=== PATIENT | female | born 1965 | race Caucasian/White ===

== ENCOUNTER 2020-08-15 14:04 | Observation (INO) | payer MEDICAID, SELFPAY ==
[2020-08-15] VITALS (10 sets, daily range): BP systolic 102–140; BP diastolic 59–91; PULSE 80–105; RESP 16–20; TEMP 36.4–36.6; O2SAT 97–100; BMI 40.0
--- NOTE | ~2020-08-15 | MR_ITS ---
EXAMINATION: MR brain/brain stem wo con EXAM DATE: 08/16/2020 11:09 INDICATION: right lower extremity weakness . TECHNIQUE: Magnetic resonance imaging (MRI) of the brain/brain stem obtained without contrast. Sagitt al T1, axial diffusion, gradient echo (T2*), T1, T2, FLAIR sequences obtained. Correlation is made t o head CT from 08/15/2020. FINDINGS: There are no areas of restricted diffusion to suggest acute infarction. There are 2 punctat e old left cerebellar infarctions and one punctate old right cerebellar infarction. Old bilateral bas al ganglia lacunar infarctions. There is no acute hemorrhage seen on the T2*, a hemosiderin sensitive sequence. No intraparenchymal brain mass lesion. There is mild periventricular and subcortical T2/ FLAIR signal hyperintensity, nonspecific but probably related to small vessel ischemic disease (micro angiopathy). There is mild prominence of the sulci and ventricles related to cerebral atrophy. Th ere are no extra-axial collections. Flow voids are seen in the cerebral arteries on the T2-weighted sequences consistent with their expected patency. The orbits are unremarkable. Soft tissue is unrem arkable. IMPRESSION: 1. Punctate old cerebellar and basal ganglia lacunar infarctions. 2. Chronic age related findings. Reviewed, dictated and finalized at location A. M REP
--- NOTE | ~2020-08-15 | CT_ITS ---
EXAMINATION: CT brain wo con DATE: 08/15/2020 15:23 INDICATION: Seizure. TECHNIQUE: Computed tomography (CT) of the head was performed without intravenous contrast. The mA wa s adjusted according to patient size. Iterative reconstruction technique was employed. The dose-lengt h product was 605.33 mGy-cm. COMPARISON: None FINDINGS: There are old lacunar infarcts in the bilateral basal ganglia. There is a small infarct in left frontoparietal region. There is a small infarct in right occipital lobe. There is no intracrania l hemorrhage or abnormal mass lesion. The ventricles are normal in size. The orbits are normal. The p aranasal sinuses are clear. The mastoid air cells are normal. IMPRESSION: 1. Age-indeterminate small infarcts in left frontoparietal region and right occipital lobe. 2. Old lacunar infarcts in the bilateral basal ganglia. Reviewed, dictated and finalized at location A. IGURATION MANAGEMENT SPECIALIST IMPRESSION: 1. Age-indeterminate small infarcts in left frontoparietal region and right occ ipital lobe. 2. Old lacunar infarcts in the bilateral basal ganglia.
--- NOTE | ~2020-08-15 | US_ITS ---
EXAMINATION: US carotid duplex BI DATE: 08/16/2020 11:48 INDICATION: Stroke TECHNIQUE: Grayscale, color Doppler, and pulsed Doppler images of the cervical carotid arteries were obtained. The degree of vessel stenosis is placed in one of the following categories: normal, <50%, 5 0-69%, >=70% but less than near-occlusion, near-occlusion, or total occlusion. Note that percent sten osis relative to normal distal artery lumen diameter is indirectly measured from velocity measurement s as described by Alfredo, et al. Radiology 2003; 229:340-346. Notes: Normal: Peak systolic velocity <125 centimeters/sec and no plaque <50%. Peak systolic velocity <125 ( EDV <40; ICA/CCA PSV ratio <2.0; used these factors only a tandem lesions or low cardiac output or co ntralateral disease) 50-69 %: PSV 125-230 (EDV 40-100; ratio 2-4) >= 70% but less than near occlusion: PSV greater than 230 (EDV > 100; ratio> 4.0) Near Occlusion: PSV that is variable; markedly narrowed lumen Occlusion: Absent flow on color/spectral Doppler and no lumen on meade scale. COMPARISON: None. FINDINGS: RIGHT: The right common carotid artery (CCA) peak systolic velocity (PSV) is 77 cm/s. The right internal car otid artery (ICA) PSV is 72 cm/s. The right ICA end-diastolic velocity (EDV) is 26 cm/s. The right IC A/CCA PSV ratio is 0.94. The external carotid artery (ECA) PSV is 77 cm/s. There is antegrade flow in the right vertebral artery. LEFT: The left CCA PSV is 110 cm/s. The left ICA PSV is 73 cm/s. The left ICA EDV is 18 cm/s. The left ICA/ CCA PSV ratio is 0.7. The ECA PSV is 50 cm/s. There is antegrade flow in the left vertebral artery. IMPRESSION: 1. Less than 50% stenosis in the right internal carotid artery by sonographic criteria. 2. Less than 50% stenosis in the left internal carotid artery by sonographic criteria. Reviewed, dictated and finalized at location B. ICATIONS COORDINATOR IMPRESSION: 1. Less than 50% stenosis in the right internal carotid artery by sonographic yael hernandez. 2. Less than 50% stenosis in the left internal carotid artery by sonographic radha hayward.
--- NOTE | ~2020-08-15 | MR_ITS ---
EXAMINATION: MR lumbar spine wo con DATE: 08/18/2020 09:11 INDICATION: Right lower extremity weakness and numbness. TECHNIQUE: Magnetic resonance imaging (MRI) of the lumbar spine was performed without intravenous con trast. Sequences included sagittal T2-weighted FSE, sagittal T2-weighted FS FSE, sagittal T1-weighted FSE, and axial T2-weighted FSE. COMPARISON: None FINDINGS: There is 6 degrees dextrocurvature of lumbar spine. There are Schmorl's nodes at multiple l evels. There is mildly decreased disc height at L3-L4, L4-L5, and L5-S1. The distal spinal cord signa l intensity is normal. The conus medullaris is at L1. There is moderate atrophy of left kidney. There is a 2.1 cm cyst in left kidney. Right kidney demonstrates multiple masses, 2 which demonstrated het erogeneous signal intensity. The right kidney is deformed. The following disc levels are specifically discussed: L1-L2: The disc does not extend beyond the endplate margin. There is mild bilateral facet joint osteo arthritis. There is no neural foraminal stenosis. There is no central canal stenosis. L2-L3: There is a central protrusion. There is mild bilateral facet joint osteoarthritis. There is no neural foraminal stenosis. There is mild central canal stenosis. L3-L4: The disc is bulging and has an annular fissure. There is mild bilateral facet joint osteoarthr itis. There is mild bilateral neural foraminal stenosis. There is mild central canal stenosis. L4-L5: The disc is bulging. There is severe bilateral facet joint osteoarthritis. There is mild bilat eral neural foraminal stenosis. There is mild central canal stenosis. L5-S1: The disc is bulging and has an annular fissure. There is moderate bilateral facet joint osteoa rthritis. There is no neural foraminal stenosis. There is mild central canal stenosis. IMPRESSION: 1. Mild lumbar spondylosis. 2. Deformed right kidney with multiple masses, at least one of which is suspicious for subcapsular he matoma. Abdomen CT without and with contrast is recommended. Reviewed, dictated and finalized at location A. NG TECHNICIAN IMPRESSION: 1. Mild lumbar spondylosis. 2. Deformed right kidney with multiple masses, at least one of which is suspici ous for subcapsular hematoma. Abdomen CT without and with contrast is recommend ed.
--- NOTE | 2020-08-15 14:57 | ECG_ITS ---
Measurements Intervals [place] Rate: 41 P: 66 MI: 172 QRS: 44 QRSD: 71 T: 48 QT: 326 QTc: 271 Interpretive Statements SINUS RHYTHM BORDERLINE ST-T WAVE ABNORMALITY- ANT/INF LEADS BASELINE ARTIFACT- I, II, III, AVR, AVL, AVF, V1-V6 BORDERLINE ECG Electronically Signed On 08-15-2020 15:47:42 SHIPYARD PAINTING SUPERVISOR by Oli Crooks D.O.
[2020-08-15 15:08] LABS: Basophils Absolute Auto 0.1 K/mm3 (0.0-0.1); Basophils Percent Auto 0.6 % (0.2-1.2); Eosinophils Absolute Auto 0.5 K/mm3 (0-0.3); Eosinophils Percent Auto 4.6 % (0-4.4); Hematocrit 32.4 % (37.0-47.0); Hemoglobin 10.3 g/dL (12.0-15.0); Immature Granulocyte Absolute 0.04 K/mm3 (0.00-0.031); Immature Granulocyte Percent A 0.3 % (0-0.5); Lymphocytes Absolute Auto 2.59 K/mm3 (0.9-3.2); Mean Corpuscular HGB Conc 31.8 g/dl (32-36); Mean Corpuscular Hemoglobin 28.9 pg (26-34); Mean Platelet Volume 9.5 fl (7.4-10.4); Monocytes Absolute Auto 0.6 K/mm3 (0.1-0.6); Monocytes Percent Auto 5.4 % (2.6-8.5); Neutrophils Absolute Auto 7.9 K/mm3 (1.3-6.7); Neutrophils Percent Auto 67.1 % (45.5-73.1); Platelet Count Result 442 k/mm3 (150-375); Red Blood Count 3.56 M/mm3 (4.2-5.4); Red Cell Distribution Width 14.3 % (11.5-14.5); White Blood Count 11.8 K/mm3 (4.5-10.0)
[2020-08-15 15:18] LABS: INR 0.9; Prothrombin Time 13.2 Seconds (11.1-14.7)
--- NOTE | 2020-08-15 15:19 | ED.NEUROSD ---
HPI - Neuro Symptoms/Deficit General Chief Complaint: Neuro Symptoms/Deficit <Eloisa Schreiber PA-C - Last Filed: 08/15/20 18:36> Stated Complaint: losing feeling in right leg, 2 seizures <ALPHONSO Vasquez Last Filed: 08/15/20 18:36> Time Seen by Provider: 08/15/20 14:57 <ALPHONSO Vasquez Last Filed: 08/15/20 18:36> Source: patient <ALPHONSO Vasquez Last Filed: 08/15/20 18:36> Mode of arrival: ambulatory <ALPHONSO Vasquez Last Filed: 08/15/20 18:36> Limitations: no limitations <ALPHONSO Vasquez Last Filed: 08/15/20 18:36> History of Present Illness HPI Narrative: This is a 54 year old female that presents to the ER for two recent seizures. Reports she was admitted to [place] in the middle of this month for a kidney stone. Reports while in the hospital she had a seizure. Reports she did not have an EEG and was not sent home on any antiepileptics. Reports they tried to do an MRI but she got too claustrophobic. She was referred to neurology as an outpatient. Reports when she woke up this morning around 5 AM she had tingling in her right leg which has continued since onset. Denies fever, vision changes, vomiting, or other numbness or weakness. <ALPHONSO Vasquez Last Filed: 08/15/20 18:36> Related Data Home Medications: Home Medications Medication Instructions Recorded Confirmed benzonatate 100 mg PO BID PRN 08/15/20 <ALPHONSO Vasquez Last Filed: 08/15/20 18:36> Allergies/Adverse Reactions: Allergies Allergy/AdvReac Type Severity Reaction Status Date / Time No Known Allergies Allergy Verified 08/15/20 14:30 <ALPHONSO Vasquez Last Filed: 08/15/20 18:36> Review of Systems Review of Systems: Narrative: CONSTITUTIONAL: Denies fever CARDIOVASCULAR: Denies chest pain RESPIRATORY: Denies dyspnea. GASTROINTESTINAL: Denies abdominal pain, nausea, vomiting SKIN: Denies rash MUSCULOSKELETAL: Denies back pain NEUROLOGIC: Reports numbness. Denies headache, or weakness. <Eloisa Schreiber PA-C - Last Filed: 08/15/20 18:36> All systems reviewed & are unremarkable except as noted in HPI and below <Eloisa Schreiber PA-C - Last Filed: 08/15/20 18:36> [facility] Past Medical History Medical History: Medical History (Updated 08/15/20 @ 18:36 by Eloisa Schreiber PA-C) History of cervical cancer <Eloisa Schreiber PA-C - Last Filed: 08/15/20 18:36> Surgical History Surgical History: Surgical History (Updated 08/15/20 @ 15:22 by Eloisa Schreiber PA-C) History of hysterectomy History of urostomy <Eloisa Schreiber PA-C - Last Filed: 08/15/20 18:36> Exam Narrative: Exam Narrative: GENERAL: Well-appearing, obese, and in no acute distress. HEAD: Normocephalic, atraumatic. EYES: PERRLA and EOMI. ENT: Nares clear, no rhinorrhea or epistaxis. Mucous membranes moist. Oropharynx without tonsillar hypertrophy exudate or other lesions. Bilateral TMs pearly meade non-bulging NECK: Supple. No adenopathy or masses. CHEST: Clear to auscultation. No respiratory distress. No wheezes rales or rhonchi HEART: Regular rate and rhythm. No murmur heard. Normal peripheral pulses. ABDOMEN: Soft, nontender, nondistended, normal active bowel sounds. Urostomy present in the right ita eof the abdomen, draining clear urine EXTREMITIES: Normal range of motion. No edema. Strength equal in bilateral upper extremities (5/5). Strength 4/5 in RLE and 5/5 LLE SKIN: Warm, dry, no rash. NEURO: No focal deficits. Alert and oriented x3. Cranial nerves II through XII grossly intact. Normal [id number] PSYCH: Normal mood and affect <Eloisa Schreiber PA-C - Last Filed: 08/15/20 18:36> Course HIV/AIDS CARE NURSE/PA Physician Supervision For this patient encounter, I reviewed the HIV/AIDS CARE NURSE or PA documentation, treatment plan, and medical decision making; and I had [id number] time with this patient. <Chandan Vazquez MD - Last Filed: 08/15/20 18:22> Consultation
[2020-08-15 15:20] LABS: Anion Gap 9 mmol/L (8-16); Blood Urea Nitrogen 27 mg/dL (7-17); Calcium 9.4 mg/dL (8.4-10.2); Carbon Dioxide 20 mmol/L (22-30); Chloride 113 mmol/L (98-107); Estimated CRCL calculation 32 ml/min; Estimated Glomerular Filt Rate 21; Glucose 123 mg/dL (65-105); Potassium 3.9 mmol/L (3.4-5.0); Sodium 142 mmol/L (137-145)
[2020-08-15 15:25] LABS: Alanine Aminotransferase 10 U/L (4-35); Alkaline Phosphatase 85 U/L (38-126); Aspartate Amino Transferase 21 U/L (14-36); Bilirubin,Total 0.4 mg/dL (0.2-1.3); Magnesium 1.7 mg/dL (1.6-2.3)
[2020-08-15 15:32] LABS: Troponin I < 0.012 ng/mL (0.000-0.034)
[2020-08-15 15:52] LABS: Add Urine Microscopic? YES; Appearance Urine Cloudy (Clear); Bacteria Urine 1+ /hpf; Bilirubin Urine Negative (Negative); Blood Urine 1+ (Negative); Color Urine Yellow (Yellow); Glucose Urine UA Negative (Negative); Ketones Urine Negative (Negative); Leukocyte Esterase Ur 3+ LEU/UL (Negative); Mucus Urine Rare /lpf; Nitrate Urine Negative (Negative); Protein Urine 2+ mg/dL (Negative); RBC Urine 21-50 /hpf (0-2); Specific Grav Ur 1.012 (1.001-1.035); Squamous Epithelial Cell Urine Occasional /hpf (Few); Urobilinogen Urine Negative mg/dL (<2.0)
[2020-08-15 16:06] LABS: Amphetamine Screen Urine Negative (Negative); Barbiturate Screen Urine Negative (Negative); Benzodiazepines Screen Urine Negative (Negative); Cannabinoid Screen Urine Negative (Negative); Cocaine Screen Urine Negative (Negative); Methadone Screen Urine Negative (Negative); Opiate Screen Urine Negative (Negative); Phencyclidine Screen Urine Negative (Negative)
[2020-08-15] MEDS: ASPIRIN 325 MG TABLET PO (18:25)
--- NOTE | 2020-08-15 20:00 | PM.IMHP ---
H&P: HPI History of Present Illness Date/Time: 08/15/20 20:00 Chief complaint: Right lower leg numbness. Narrative: Jolanta White is a pleasant 54-year-old female with history of cervical cancer, kidney stones, chronic kidney disease, and anemia who presented to the emergency department earlier today from home for evaluation of right lower leg numbness. She was recently admitted to [place] for what sounds like percutaneous nephrolithotomy and during that stay she reportedly had a new onset seizure. Brain MRI was unable to be completed as she only lasted in the machine approximately 20 minutes before becoming extraordinarily anxious. It is my understanding that that MRI showed possible old basal ganglia infarction however nothing acute was documented. She was discharged a couple of weeks ago and is to follow-up with a neurologist at [place] in the coming month. The patient believes she had another seizure on , and tells me that while she was lying in bed she began to feel ?very weird and weak? and she began shaking before going unconscious. She came to and reportedly was in her usual state of health, without confusion or evidence of incontinence or tongue bite. In any regard, when she woke yesterday she noticed that the right lower leg from the knee down seemed a little bit tingly and as the day progressed it became numb to the point where she was essentially dragging her leg while walking. When she got out of bed this morning she nearly fell due to the numbness and came in for evaluation. A brain CT done today showed age-indeterminate small infarcts in the left frontoparietal region and right occipital lobe and she is being admitted in this setting. She was surprised by the fact that she apparently had old infarcts noted on her MRI at [place] as she had no symptoms of such. She has no known history of hypertension, dyslipidemia, cardiac dysrhythmia, PFO, or carotid artery disease. With further questioning she does mention that several times a year she will have bouts of racing and fluttering heart however it is self-limiting and does not last for very long. In fact she has not experienced such in over 1 year. At the time my evaluation she has no other complaints and denies vertigo, auditory visual changes, facial droop, dysarthria, and dysphagia. Review of Systems Review of Systems: Narrative: Twelve systems were reviewed with pertinent positives and negatives as per HPI. No fever, chills, or sweats. No fall or head trauma. She denies cold and flu symptoms. No known exposure to those positive for COVID-19. She was recently treated for urinary tract infection. It is noted that the patient had a cystectomy for what sounds like some sort of bladder fistula, and underwent urinary diversion earlier this year. Bowels have been unremarkable. Except as documented, all other systems were reviewed and are negative. [facility] Past Medical History Medical History (Updated 08/15/20 @ 23:45 by Bety Costa PA-C) Cervical cancer (~2011) Status post chemotherapy and radiation. Considered to be cured. Chronic anemia Chronic kidney disease Kidney stones Surgical History Surgical History (Updated 08/15/20 @ 23:40 by Bety Costa PA-C) History of cholecystectomy History of nephrolithotomy with removal of calculi (~07/2020) History of total cystectomy (~02/2020) For treatment of bladder fistula. History of umbilical hernia repair History of urinary diversion procedure History of urostomy Family History Family History Mother Cerebrovascular accident Father Heart disease Social History Social History (Updated 08/15/20 @ 23:42 by Bety Costa PA-C) Social History: Surrogate decision maker: Ventura Joy (son) or Gavin Escobar (brother). Code status: Full code. Smoking status: Never smoker Alcohol intake: never Substance use: never Substance use type
[2020-08-16] VITALS (9 sets, daily range): BP systolic 95–116; BP diastolic 59–68; PULSE 79–94; RESP 14–20; TEMP 36.6–36.9; O2SAT 99–100
--- NOTE | 2020-08-16 | ECHO_ITS ---
Patient Info Name: Jolanta White Age: 54 years : 1965 Gender: Female Ht: 66 in Wt: 248 lbs BSA: 2.34 m2 HR: 87 bpm BP: 146 / 70 mmHg Heart Rhythm: Sinus Rhythm Technical Quality: Good Exam Date: 08/16/2020 9:29 AM Exam Location: [facility] Patient Status: Outpatient Admit Date: 08/15/2020 Staff Ordering Physician: Bety Costa PA-C Group Exercise Manager: Iain White, ANGIE, RT Attending Provider: Apoorva Balderrama NP Referring Physician: Julissa CLARK; Exam Type: CA echo doppler w bubble study Study Info Indications G45.8 - Other transient cerebral ischemic attacks and related syndromes Complete two-dimensional, color flow and Doppler transthoracic echocardiogram is performed with agitated saline. Summary 1. Left ventricular systolic function is normal, estimated at 55-60%. 2. There is mildly increased left ventricular wall thickness. 3. The left ventricular diastolic function is grade I diastolic dysfunction. 4. Intracardiac shunt at the atrial level with injection of agitated saline consistent with small atrial septal defect versus PFO. 5. There is no aortic valve stenosis. 6. There is trace mitral valve regurgitation. 7. There is mild tricuspid valve regurgitation. 8. No pulmonary hypertension, estimated pulmonary arterial systolic pressure is 22 mmHg. 9. Aneurysmal motion of the atrial septum. Recommendations * Consider transesophageal echocardiogram if clinically indicated. Left Ventricle Left ventricular chamber dimension is normal. Left ventricular systolic function is normal, estimated at 55-60%. There is mildly increased left ventricular wall thickness. The left ventricular diastolic function is grade I diastolic dysfunction. Right Ventricle Right ventricular chamber dimension is normal. Right ventricular systolic function is normal. Left Atria Left atrial chamber dimension is normal. Right Atria Right atrial chamber dimension is normal. Atrial Septum Intracardiac shunt at the atrial level with injection of agitated saline consistent with small atrial septal defect versus PFO. Aneurysmal motion of the atrial septum. Aortic Valve The aortic valve is trileaflet. There is no aortic valve stenosis. There is no aortic valve regurgitation. Pulmonic Valve The pulmonic valve is not well visualized. There is trace pulmonic regurgitation. Mitral Valve The mitral valve has normal leaflets. There is trace mitral valve regurgitation. The mitral valve annulus is mildly calcified. Tricuspid Valve The tricuspid valve leaflets are normal. There is mild tricuspid valve regurgitation. No pulmonary hypertension, estimated pulmonary arterial systolic pressure is 22 mmHg. Pericardium/Pleural The pericardium appears normal. There is no pericardial effusion. Inferior Vena Cava Inferior vena cava is not well visualized. Aorta The aortic root size at the sinus of Valsalva is normal. Left Ventricular Outflow Tract Name Value Normal LVOT 2D LVOT Diameter 2.0 cm LVOT Doppler LVOT Peak Gradient 4 mmHg LVOT Mean Gradient
[2020-08-16] MEDS: BENZONATATE 100 MG CAPSULE PO ×2 (04:52→20:33)
[2020-08-16 05:43] LABS: Hematocrit 26.6 % (37.0-47.0); Hemoglobin 8.5 g/dL (12.0-15.0); Mean Corpuscular Hemoglobin 28.5 pg (26-34); Mean Corpuscular Volume 89.3 fl (80-100); Mean Platelet Volume 9.7 fl (7.4-10.4); Platelet Count Result 344 k/mm3 (150-375); Red Blood Count 2.98 M/mm3 (4.2-5.4); Red Cell Distribution Width 14.1 % (11.5-14.5); White Blood Count 11.2 K/mm3 (4.5-10.0)
[2020-08-16 05:55] LABS: Anion Gap 8 mmol/L (8-16); Blood Urea Nitrogen 28 mg/dL (7-17); Carbon Dioxide 18 mmol/L (22-30); Chloride 115 mmol/L (98-107); Cholesterol 197 mg/dL (0-200); Estimated CRCL calculation 32 ml/min; Estimated Glomerular Filt Rate 21; Glucose 97 mg/dL (65-105); HDL Direct 33 mg/dL; Magnesium 1.7 mg/dL (1.6-2.3); Potassium 3.7 mmol/L (3.4-5.0); Sodium 141 mmol/L (137-145); Triglycerides 207 mg/dL (<150)
[2020-08-16 06:05] LABS: LDL Cholesterol Direct 90 mg/dL
[2020-08-16] MEDS: ASPIRIN 81 MG ENTERIC TABLET PO (08:29)
--- NOTE | 2020-08-16 09:25 | PCOTNOTE ---
OT evaluation attempted. Patient having echo completed. Will attempt at later time.
--- NOTE | 2020-08-16 10:13 | WPDNEURCNPN ---
Assessment and Plan Assessment and plan (1) Cerebrovascular accident (CVA): Qualifiers: CVA mechanism: unspecified Qualified Code(s): I63.9 - Cerebral infarction, unspecified Code(s): I63.9 - Cerebral infarction, unspecified Status: Acute Additional Plan old or new infarct documented by the CT scan will need the MRI of the brain in addition to the complete evaluation for the source of emboli that his echocardiogram with bubble study in the meantime she will be started on baby aspirin and further recommendation will be made accordingly Consult date: 08/16/20 Time Seen: 10:00 HPI: Jolanta White is a 54 year old femaleHas [facility] for the complaints of right lower extremity numbness in addition to the history of 1. Cervical cancer 2. Renal stones 3. Chronic renal disease 4. Anemia patient presented to the ER for the complaints of right lower extremity numbness patient had been recently admitted to [facility] for percutaneous nephrologic heart me and during that stay she reportedly had a new onset seizure. Brain MRI could not be completed as she became extremely anxious but it showed possible old basal ganglia infarction but nothing acute. She was discharged from the [facility] couple of weeks ago and is to follow with her neurologist at [facility] but reportedly she had another seizure on and while she was lying in bed she became have weird and weak and shaking before she became unconscious when she woke up yesterday she noted the right lower extremity was tingling below the knee and she was dragging her lack on the day of admission she felt due to the numbness and decided to come to the hospital for further evaluation brain CT scan documented age undetermined small infarct in the left frontoparietal region and right occipital lobe though patient was surprised by the fact that she apparently had old infarct noted on her MRI at [place] and she had no symptoms of that stroke there is no history of hypertension, dyslipidemia, cardiac dysrhythmia, PFO, carotid artery disease, there is no history of exposure to COVID but her past history is consistent with the history of cervical cancer in 2011 evaluation up until Erin revealed her to have mild leukocytosis with hemoglobin 8.5 BUN of 28 with creatinine of 2.40 and estimated GFR only 21 toxicology screen negative Review of Systems Review of Systems: All systems reviewed & are unremarkable except as noted in HPI and below PMFSH Past Medical History Medical History Cervical cancer (~2011) Status post chemotherapy and radiation. Considered to be cured. Chronic anemia Chronic kidney disease Kidney stones Surgical History Surgical History History of cholecystectomy History of nephrolithotomy with removal of calculi (~07/2020) History of total cystectomy (~02/2020) For treatment of bladder fistula. History of umbilical hernia repair History of urinary diversion procedure History of urostomy Family History Family History Mother Cerebrovascular accident Father Heart disease Social History Social History Social History: Surrogate decision maker: Ventura Joy (son) or Gavin Escobar (brother). Code status: Full code. Smoking status: Never smoker Alcohol intake: never Substance use: never Substance use type: does not use Additional living arrangements comments: Lives in [place] with her son and their dog Additional occupation/education comments: Currently unemployed. Worked for 20+ years at [employer]. Gender identity (if verbalized by the patient): Female Spiritual care concerns: No Meds Home Medications and Allergies Home Medications Medication Instructions Recorded
[2020-08-16] MEDS: LORazepam INJ (*CRX) 2 MG/ML VIAL 0.5 MG IV PUSH (10:35)
--- NOTE | 2020-08-16 10:45 | PC.NURSE ---
To MRI via wheelchair with transporter.
--- NOTE | 2020-08-16 11:06 | PM.IMPN ---
Progress Note: A&P Assessment and Plan (1) Cerebrovascular accident (CVA): Qualifiers: CVA mechanism: unspecified Qualified Code(s): I63.9 - Cerebral infarction, unspecified Code(s): I63.9 - Cerebral infarction, unspecified Status: Acute Assessment and Plan: possible CVA, possible nerve impingement, possible spinal related neuropathy having persistent foot drop and dragging her right foot with walking now. CT showed past infarcts Ordered PT and OT evaluation. Echo completed, awaiting report. Carotid Dopplers pending. Fasting lipid levels were near normal, trigylcerides 207. Checking A1C. TSH was 1.59 and magnesium 1.7, troponin x1 negative. get her MRI completed. aspirin will continue. continue neuro checks Q 4 hrs. No current signs of seizures at this time. Treating a mild headache with oral Tylenol. She has had a history of a witnessed grand mal seizure at [place] and concern for a possible seizure at home. No seizure history in her family, but her mother did have a CVA. Appreciate neurologist Dr. Fallon and his recommendations in care for this patient. (2) Bacteriuria with pyuria: Code(s): R82.71 - Bacteriuria; R82.81 - Pyuria Status: Acute Assessment and Plan: Will continue to treat her positive a UA with IV Rocephin urine cultures pending. encourage oral hydration monitoring I and Os. no fevers noted WBC 11.2 (3) Chronic kidney disease: Code(s): N18.9 - Chronic kidney disease, unspecified Status: Inactive Assessment and Plan: We did discuss her acute renal failure and her persisting creatinine of 2.4. does have a urostomy with exterior collection bag anteriorly. does see Urologist Dr. Lerner at [facility] for that related care. has a history of cancer treatment that may have affected her renal function. Recommended the patient follow-up with a contract design agent on a routine and regular basis, every 6-12 months. (4) Chronic anemia: Code(s): D64.9 - Anemia, unspecified Status: Inactive Assessment and Plan: may be related to poor renal function or poor diet or mulitfactorial H/H stable at admission 10.3/32.4, now down to 8.5/26.6, likely due to IVFs stopping IVFs monitoring fluid volume, no edema or wheezing or s/s of overload may benefit from Niferex daily. Subjective Date/time seen: 08/16/20 11:06 Jolanta was resting comfortably in bed this morning when I went to see her. She denies any trauma or back pain, but continues to have persistent dampening of sensation and weakness to her right lower extremity. She has weakness to her right dorsiflexion as well as extension. She has persistent numbness and tingling from her knee down on the right leg, but states that from her knee up, her right thigh has normal sensation. She stated that she is having persistent foot drop and dragging her right foot with walking now. This was new at this admission. Ordered PT and OT evaluation. Echo completed, awaiting report. Carotid Dopplers pending. Fasting lipid levels were near normal, trigylcerides 207. Checking A1C. TSH was 1.59 and magnesium 1.7, troponin x1 negative. Will continue to treat her positive a UA with IV Rocephin, urine cultures pending. I have ordered Ativan for her to get through her anxiety and get her MRI completed. Her aspirin will continue. Will continue neuro checks. No current signs of seizures at this time. Treating a mild headache with oral Tylenol. She has had a history of a witnessed grand mal seizure at [place] and concern for a possible seizure at home. No seizure history in her family, but her mother did have a CVA. Appreciate neurologist Dr. Fallon and his recommendations in care for this patient. Patient was instructed to follow-up with a neurologist from [facility], but stated they never returned her phone call to get an appointment. She cannot remember that neurologist name. We did discuss her acute renal fail
[2020-08-16] MEDS: POLYSACCHARIDE IRON COMPLEX 150 MG CAPSULE PO (15:24)
[2020-08-17] VITALS (8 sets, daily range): BP systolic 107–132; BP diastolic 48–76; PULSE 78–93; RESP 16–20; TEMP 36.3–36.6; O2SAT 98–100
[2020-08-17 05:50] LABS: Hematocrit 26.8 % (37.0-47.0); Hemoglobin 8.6 g/dL (12.0-15.0); Mean Corpuscular HGB Conc 32.1 g/dl (32-36); Mean Corpuscular Hemoglobin 29.2 pg (26-34); Mean Corpuscular Volume 90.8 fl (80-100); Mean Platelet Volume 9.7 fl (7.4-10.4); Platelet Count Result 296 k/mm3 (150-375); Red Blood Count 2.95 M/mm3 (4.2-5.4); Red Cell Distribution Width 14.1 % (11.5-14.5); White Blood Count 10.2 K/mm3 (4.5-10.0)
[2020-08-17 06:05] LABS: Alanine Aminotransferase 9 U/L (4-35); Albumin Level 3.3 g/dL (3.5-5.1); Alkaline Phosphatase 72 U/L (38-126); Anion Gap 8 mmol/L (8-16); Aspartate Amino Transferase 18 U/L (14-36); Bilirubin,Total 0.3 mg/dL (0.2-1.3); Blood Urea Nitrogen 28 mg/dL (7-17); Calcium 8.9 mg/dL (8.4-10.2); Carbon Dioxide 18 mmol/L (22-30); Chloride 115 mmol/L (98-107); Estimated CRCL calculation 33 ml/min; Estimated Glomerular Filt Rate 22; Glucose 100 mg/dL (65-105); Potassium 3.9 mmol/L (3.4-5.0); Sodium 141 mmol/L (137-145)
[2020-08-17 07:39] LABS: Hemoglobin A1C 4.7 % (<5.7)
[2020-08-17] MEDS: BENZONATATE 100 MG CAPSULE PO (08:24)
[2020-08-17] MEDS: ASPIRIN 81 MG ENTERIC TABLET PO (08:24)
--- NOTE | 2020-08-17 10:15 | WPDNEUROPN ---
Progress Note: A&P Assessment and Plan (1) Cerebrovascular accident (CVA): Qualifiers: CVA mechanism: unspecified Qualified Code(s): I63.9 - Cerebral infarction, unspecified Code(s): I63.9 - Cerebral infarction, unspecified Status: Acute Additional Plan needs cardiology consultation Review of Systems Review of Systems: All systems reviewed & are unremarkable except as noted in HPI and below Exam Narrative: Exam Narrative: unchanged Objective Data Vital Signs Vital Signs: Vital Signs - 24 hr 08/16/20 13:00 08/16/20 14:00 08/16/20 16:00 Temperature 36.9 C Pulse Rate 88 79 79 Respiratory Rate 14 Blood Pressure 95/59 L Pulse Oximetry 100 08/16/20 20:00 08/16/20 20:54 08/17/20 00:00 Temperature 36.9 C Pulse Rate 94 86 83 Respiratory Rate 20 Blood Pressure 100/68 Pulse Oximetry 100 08/17/20 04:00 08/17/20 08:00 Temperature 36.6 C Pulse Rate 81 80 Respiratory Rate 20 Blood Pressure 119/48 L Pulse Oximetry 100 Intake/Output Intake/Output: Intake & Output 08/14/20 08/15/20 08/16/20 08/17/20 23:59 23:59 23:59 23:59 Intake Total 50 1620 400 Output Total 1725 325 Balance 50 -105 75 Meds/Results Medications: Active Medications Generic Name Dose Route Start Last Admin Trade Name Freq PRN Reason Stop Dose Admin Acetaminophen 1,000 mg 08/16/20 11:03 Acetaminophen 500 Mg Tablet PO Q6H PRN Pain or Fever Aspirin 81 mg 08/16/20 09:00 08/17/20 08:24 Aspirin 81 Mg Enteric Tablet PO 81 mg QAM SHANIA Administration Benzonatate 100 mg 08/15/20 23:49 08/17/20 08:24 Benzonatate 100 Mg Capsule PO 100 mg BID PRN Administration Cough Ceftriaxone Sodium/Dextrose 1 gm in 50 mls @ 100 mls/hr 08/16/20 18:00 08/16/20 18:16 Rocephin 1 Gm/D5w 50 Ml IVPB Infused Q24H SHANIA Infusion Polysaccharide Iron Complex 150 mg 08/16/20 12:00 08/16/20 15:24 Polysaccharide Iron Complex 150 Mg Capsule PO 150 mg DAILY@0800 [facility] Administration Radiology Results: ITS Impressions Head CT 08/15/20 15:28 IMPRESSION: 1. Age-indeterminate small infarcts in left frontoparietal region and right occipital lobe. 2. Old lacunar infarcts in the bilateral basal ganglia. Brain MRI 08/16/20 11:13 IMPRESSION: 1. Punctate old cerebellar and basal ganglia lacunar infarctions. 2. Chronic age related findings. Carotid Doppler Study 08/16/20 11:53 IMPRESSION: 1. Less than 50% stenosis in the right internal carotid artery by sonographic criteria. 2. Less than 50% stenosis in the left internal carotid artery by sonographic criteria. Labs Labs: Laboratory Results - last 24 hr 08/17/20 08/17/20 08/17/20 05:10 05:10 05:10 WBC 10.2 H RBC 2.95 L Hgb 8.6 L Hct 26.8 L MCV 90.8 MCH 29.2 MCHC 32.1 RDW 14.1 Plt Count 296 MPV 9.7 Sodium 141 Potassium 3.9 Chloride 115 H Carbon Dioxide 18 L Anion Gap 8 BUN 28 H Creatinine 2.30 H Estim Creat Clear Calc 33 Estimated GFR 22 L Glucose 100 Hemoglobin A1c 4.7 Calcium 8.9 Total Bilirubin 0.3 AST 18 ALT 9 Alkaline Phosphatase 72 Total Protein 7.0 Albumin 3.3 L Quality VTE Prophylaxis VTE prophylaxis: mechanical ordered
--- NOTE | 2020-08-17 10:39 | PM.IMPN ---
Progress Note: A&P Assessment and Plan (1) Cerebrovascular accident (CVA): Qualifiers: CVA mechanism: unspecified Qualified Code(s): I63.9 - Cerebral infarction, unspecified Code(s): I63.9 - Cerebral infarction, unspecified Status: Acute Assessment and Plan: MRI Brain shows old punctate old cerebellar and basal ganglia lacunar infarctions; no acute intracranial findings. Consider possible nerve impingement vs possible spinal related neuropathy. Echo shows likely intracranial shunt. Dr. Fallon consulted and appreciate recommendations; rec Cardiology consult for possible CRISTÓBAL. Carotid dopplers unremarkable. She has had a history of a witnessed grand mal seizure at [place] and concern for a possible seizure at home; no reported seizures since. Await further rec from Neurology and Cardiology Continue with aspirin therapy for now Monitor (2) Chronic kidney disease: Code(s): N18.9 - Chronic kidney disease, unspecified Status: Inactive Assessment and Plan: Cr 2.3 today; stable. Does have a urostomy. Follows Urologist Dr. Lerner at [facility] for that related care. Has a history of cancer treatment that may have affected her renal function. Follow-up with a clinic md associate Monitor renal function (3) Chronic anemia: Code(s): D64.9 - Anemia, unspecified Status: Inactive Assessment and Plan: Possibly anemia of chronic disease. H&H stable today. Monitor H&H F/u with PCP (4) Urinary tract infection: Qualifiers: Hematuria presence: without hematuria Urinary tract infection type: acute cystitis Qualified Code(s): N30.00 - Acute cystitis without hematuria Code(s): N39.0 - Urinary tract infection, site not specified Status: Acute Assessment and Plan: Patient has urostomy. UA suspcious for UTI. UCx growing E. Coli sensitive to Rocephin. IV rocephin x 2 days; switched to PO cefdinir today Complete 5-7 days total antibiotics for UTI Monitor Subjective Date/time seen: 08/17/20 10:39 Interval history: Patient is a 54-year-old female with history of cervical cancer, kidney stones, chronic kidney disease, and anemia who is here for evaluation of right LE weakness and subsequent CVA work up. Patient states she feels okay today. Her numbness/weakness in RLE is still present, but improved. She has no other complaints. She has a urostomy output without pain/abnormal discharge in ostomy site. Feels a bit tired and generally weak. Reports a chronic dry cough for the last couple of months (she reports bronchitis yearly around this time of year). Denies f/c/s, headaches, dizziness, lightheadedness, changes in v/h, cp/palpitations, current sob/cough, n/v/d/c, abd pain, changes in BMs, hematuria, cloudy urine, calf pain/swelling. Review of Systems Review of Systems: All systems reviewed & are unremarkable except as noted in HPI and below Exam Narrative: Exam Narrative: General: Patient resting supine in bed in no acute distress. HEENT: Normocephalic, EOMI, oral mucosa moist. Cardiovascular: Rate and rhythm are regular. No notable murmur, rub, or gallop. Respiratory: Lungs clear to auscultation all smith. Non-labored breathing. Abdomen: Soft, non-tender, non-distended, bowel sounds present. Urostomy noted with clear, yellow output Extremities: Peripheral pulses intact. No edema. Neuro: Decreased RLE sensation compared to left. Decreased MS in right compared to left. Speech is clear. No other focal deficits Objective Data Vital Signs Vital Signs: Last Vital Signs Temp 97.8 F 08/17/20 04:00 Pulse 80 08/17/20 08:00 Resp 20 08/17/20 04:00 BP 119/48 L 08/17/20 04:00 Pulse Ox 100 08/17/20 04:00 Intake/Output Intake/Output: Intake & Output 08/14/20 08/15/20 08/16/20 12/0
--- NOTE | 2020-08-17 12:08 | PM.CNCAR ---
Assessment and Plan Assessment and plan (1) ASD (atrial septal defect): Code(s): Q21.1 - Atrial septal defect Status: Acute Assessment and Plan: Incidentally noted on 2D echocardiogram. There is no documentation of acute stroke therefore CRISTÓBAL unlikely to exchange architect at this time. We discussed risks, benefits, and alternatives in this regard and while this may be warranted in the near future with referral to Dr. Baca at [place] for ASD/PFO closure consideration, this would be on an outpatient basis. Patient verbalized understanding and agreed. Reviewed the pathophysiology and how an ASD/PFO may be involved in paradoxical embolic stroke in general. All questions answered to her satisfaction. (2) H/O: CVA (cerebrovascular accident): Code(s): Z86.73 - Personal history of transient ischemic attack (TIA), and cerebral infarction without residual deficits Status: Acute Assessment and Plan: She has a history of cervical cancer. MRI this hospitalization reveals no acute infarction but confirms old/chronic infarctions corroborated by MRI at [place] and essentially unchanged compared to a study performed in 2018 indicating longstanding infarctions. Patient was unaware of this history has no documented history of atrial fibrillation/flutter although symptoms highly suggestive of tachyarrhythmia in the past (none for 1-2 years). Recommend aspirin 81 mg daily. Atorvastatin 20 mg goal LDL less than 70. Risk factor modification counseling. Outpatient 30 day ekg monitor to assess for atrial fibrillation/flutter. Follow up with me in the office in 6 weeks for further discussion. Disposition per hospitalist service. Discussed various mechanisms by which stroke can occur. Discussed potential role for closure ASD and/or PFO in setting of stroke history. (3) Chronic kidney disease: Code(s): N18.9 - Chronic kidney disease, unspecified Status: Acute Assessment and Plan: Chronic, stable. (4) Chronic anemia: Code(s): D64.9 - Anemia, unspecified Status: Acute Assessment and Plan: H&H declined since admission all stable thus far. No evidence of active bleed. (5) Seizure: Code(s): R56.9 - Unspecified convulsions Status: Acute Assessment and Plan: It is unclear what the cause for new onset seizure whether this is anesthesia related sequelae due to history of stroke. Neurology is involved in her care. Appreciate their recommendations and management. (6) Urinary tract infection: Qualifiers: Hematuria presence: without hematuria Urinary tract infection type: acute cystitis Qualified Code(s): N30.00 - Acute cystitis without hematuria Code(s): N39.0 - Urinary tract infection, site not specified Status: Acute Assessment and Plan: For primary service. (7) Cerebrovascular accident (CVA): Qualifiers: CVA mechanism: unspecified Qualified Code(s): I63.9 - Cerebral infarction, unspecified Code(s): I63.9 - Cerebral infarction, unspecified Status: Acute History of Present Illness History of Present Illness Consult date/time: Date of service: 08/17/20 12:08 This is a cardiology consultation at the request of Apoorva Balderrama NP [facility] service for my opinion regarding PFO/ASD noted on echocardiogram in the setting of symptoms concerning for stroke. Requesting physician: Apoorva Balderrama NP Consult reason: Other (Atrial Septal Defect on Echocardiogram) Reason For Visit: Right lower leg numbness. Narrative: Patient is a very pleasant 54-year-old female with a past medical history significant chronic kidney disease stage 3, chronic anemia, history of cervical cancer, nephrolithiasis, obesity who was admitted earlier in July for percutaneous nephrolithotomy complicated by perinephric hematoma. It was recorded patient had a provoked seizure but no further records are available in this regard
--- NOTE | 2020-08-17 12:47 | PC.NURSE ---
Patient's heartrate in the 150s with ambulation to the bathroom. Dr. Gonzalez on floor and notified of same. Patient asymptomatic with tachycardia.
[2020-08-17] MEDS: ATORVASTATIN 20 MG TABLET PO (12:48)
[2020-08-17] MEDS: CEFDINIR 300 MG CAPSULE PO ×2 (12:48→23:11)
[2020-08-17] MEDS: guaiFENesin/CODEINE (*CRX) 200/20 MG 10 ML SYRUP PO (20:08)
[2020-08-18] VITALS: PULSE 75
[2020-08-18 04:00] VITALS: PULSE 70
[2020-08-18 05:46] VITALS: BP 103/65; PULSE 74; RESP 20; TEMP 36.2; O2SAT 99
[2020-08-18 05:46] LABS: Basophils Percent Auto 0.5 % (0.2-1.2); Eosinophils Absolute Auto 0.6 K/mm3 (0-0.3); Eosinophils Percent Auto 6.8 % (0-4.4); Hemoglobin 8.6 g/dL (12.0-15.0); Immature Granulocyte Absolute 0.04 K/mm3 (0.00-0.031); Immature Granulocyte Percent A 0.5 % (0-0.5); Lymphocytes Percent Auto 27.6 % (18.3-44.2); Mean Corpuscular HGB Conc 31.9 g/dl (32-36); Mean Corpuscular Hemoglobin 28.7 pg (26-34); Mean Platelet Volume 9.7 fl (7.4-10.4); Monocytes Absolute Auto 0.6 K/mm3 (0.1-0.6); Monocytes Percent Auto 6.8 % (2.6-8.5); Neutrophils Percent Auto 57.8 % (45.5-73.1); Platelet Count Result 279 k/mm3 (150-375); Red Cell Distribution Width 14.2 % (11.5-14.5); White Blood Count 8.7 K/mm3 (4.5-10.0)
[2020-08-18 06:10] LABS: Anion Gap 8 mmol/L (8-16); Blood Urea Nitrogen 35 mg/dL (7-17); Carbon Dioxide 17 mmol/L (22-30); Chloride 113 mmol/L (98-107); Estimated CRCL calculation 33 ml/min; Estimated Glomerular Filt Rate 22; Glucose 94 mg/dL (65-105); Magnesium 1.8 mg/dL (1.6-2.3); Potassium 4.3 mmol/L (3.4-5.0); Sodium 138 mmol/L (137-145)
[2020-08-18] MEDS: guaiFENesin/CODEINE (*CRX) 200/20 MG 10 ML SYRUP PO (06:56)
[2020-08-18 08:00] VITALS: PULSE 86
[2020-08-18] MEDS: LORazepam INJ (*CRX) 2 MG/ML VIAL 0.5 MG IV PUSH (08:17)
[2020-08-18] MEDS: ATORVASTATIN 20 MG TABLET PO (10:00)
[2020-08-18] MEDS: CEFDINIR 300 MG CAPSULE PO (10:00)
[2020-08-18] MEDS: ASPIRIN 81 MG ENTERIC TABLET PO (10:00)
--- NOTE | 2020-08-18 11:37 | PM.IMPN ---
Progress Note: A&P Assessment and Plan (1) Numbness of right lower extremity: Code(s): R20.0 - Anesthesia of skin Status: Acute Assessment and Plan: This appears to have slowly improved over the past several days since symptoms started. No limited to slight decrease sensation in right foot. MS appears to be intact. Consider possible nerve impingement vs possible spinal related neuropathy. MRI of lumbar spine shows mild spondylosis; incidental finding of multiple masses with at least one suspicious for subcapsular hematoma although this appears to be noted on CTAP at [place] last month. Will likely discharge if okay from Neuro standpoint F/u with Neuro after discharge (2) Seizure: Code(s): R56.9 - Unspecified convulsions Status: Acute Assessment and Plan: Reports of seizure while at [facility] last month. Patient unable to follow up with a Neurologist at [facility] as she has not received a call back to establish an appointment. Questionable unwitnessed seizure at home prior to arrival for this hospital stay as well. No work up per Neurology during this hospital stay as of yet. We discussed prompt follow up with either Dr. Fallon or [facility] neurology to establish an appointment for this. Possibly anesthesia induced from recent nephrolithotomy procedure at [facility]? No other clear etiology for seizure at this moment as she does not appear to have acute stroke on Brain MRI. F/u with Neuro after discharge. Rec no driving (3) Cerebrovascular accident (CVA): Qualifiers: CVA mechanism: unspecified Qualified Code(s): I63.9 - Cerebral infarction, unspecified Code(s): I63.9 - Cerebral infarction, unspecified Status: Chronic Assessment and Plan: MRI Brain shows old punctate old cerebellar and basal ganglia lacunar infarctions; no acute intracranial findings. Echo shows likely intracranial shunt. Dr. Fallon consulted and appreciate recommendations; rec Cardiology consult for possible CRISTÓBAL. Carotid dopplers unremarkable. She has had a history of a witnessed grand mal seizure at [place] and concern for a possible seizure at home; no reported seizures since. See above Await further rec from Neurology Will continue on aspirin and statin for now F/u with Neuro as outpatient Will likely discharge today or tomorrow if okay with Neuro (4) Chronic kidney disease: Code(s): N18.9 - Chronic kidney disease, unspecified Status: Acute Assessment and Plan: Cr 2.3 today; stable. Appears to be below Cr from recent hospital stay at [place] last month. Does have a urostomy. Follows Urologist Dr. Lerner at [facility] for that related care. Has a history of cancer treatment that may have affected her renal function. Follow-up with urologist Placed a call out to Dr. Lerner's office to relay information of likely subcapsular hematoma on right kidney on MRI lumbar spine findings. Appears to be evident on CTAP at [place] s/p nephrolithotomy last month Monitor renal function (5) Chronic anemia: Code(s): D64.9 - Anemia, unspecified Status: Acute Assessment and Plan: Possibly anemia of chronic disease. H&H stable today. Monitor H&H F/u with PCP (6) Urinary tract infection: Qualifiers: Hematuria presence: without hematuria Urinary tract infection type: acute cystitis Qualified Code(s): N30.00 - Acute cystitis without hematuria Code(s): N39.0 - Urinary tract infection, site not specified Status: Acute Assessment and Plan: Patient has urostomy. UA suspcious for UTI. UCx growing E. Coli sensitive to Rocephin. IV rocephin x 2 days; switched to PO cefdinir 08/17 (day 4 total antibiotics) Complete 5-7 days total antibiotics for UTI Monitor
[2020-08-18 12:00] VITALS: PULSE 84
--- NOTE | 2020-08-18 12:20 | WPDNEUROPN ---
Progress Note: A&P Assessment and Plan (1) Numbness of right lower extremity: Code(s): R20.0 - Anesthesia of skin Status: Acute (2) Seizure: Code(s): R56.9 - Unspecified convulsions Status: Acute (3) Chronic anemia: Code(s): D64.9 - Anemia, unspecified Status: Acute (4) Chronic kidney disease: Code(s): N18.9 - Chronic kidney disease, unspecified Status: Acute (5) H/O: CVA (cerebrovascular accident): Code(s): Z86.73 - Personal history of transient ischemic attack (TIA), and cerebral infarction without residual deficits Status: Acute (6) ASD (atrial septal defect): Code(s): Q21.1 - Atrial septal defect Status: Acute (7) Bacteriuria with pyuria: Code(s): R82.71 - Bacteriuria; R82.81 - Pyuria Status: Acute (8) Cerebrovascular accident (CVA): Qualifiers: CVA mechanism: unspecified Qualified Code(s): I63.9 - Cerebral infarction, unspecified Code(s): I63.9 - Cerebral infarction, unspecified Status: Chronic (9) Urinary tract infection: Qualifiers: Hematuria presence: without hematuria Urinary tract infection type: acute cystitis Qualified Code(s): N30.00 - Acute cystitis without hematuria Code(s): N39.0 - Urinary tract infection, site not specified Status: Acute Additional Plan is stable at this particular time cardiology recommendations noted for the atrial septal defect, I will start her on the anticonvulsants and follow in the office Review of Systems Review of Systems: All systems reviewed & are unremarkable except as noted in HPI and below Exam Narrative: Exam Narrative: on examination she continues to be awake alert very cooperative in present speech nor dysphasic no dysarthric not dysphonic ear nose throat examination normal neck is supple with no bruit no lymphadenopathy heart regular lungs clear with no rhonchi or crepitation abdomen is soft with no organomegaly neurological examination revealed her to be awake alert completely aware of being in the hospital is speech nor dysphasic not dysarthric not dysphonic cranial examination is normal motor examination revealed no focal motor deficit and reflexes are symmetrical plantars are downgoing Objective Data Vital Signs Vital Signs: Vital Signs - 24 hr 08/17/20 14:00 08/17/20 16:00 08/17/20 20:00 Temperature 36.3 C L Pulse Rate 93 78 93 Respiratory Rate 16 Blood Pressure 132/71 Pulse Oximetry 98 08/17/20 22:00 08/18/20 00:00 08/18/20 04:00 Temperature 36.3 C L Pulse Rate 91 75 70 Respiratory Rate 20 Blood Pressure 107/76 Pulse Oximetry 98 08/18/20 05:46 08/18/20 08:00 Temperature 36.2 C L Pulse Rate 74 86 Respiratory Rate 20 Blood Pressure 103/65 Pulse Oximetry 99 Intake/Output Intake/Output: Intake & Output 08/15/20 08/16/20 08/17/20 08/18/20 23:59 23:59 23:59 23:59 Intake Total 50 1620 2185 480 Output Total 1725 575 500 Balance 50 -105 1610 -20 Meds/Results Medications: Active Medications Generic Name Dose Route Start Last Admin Trade Name Freq PRN Reason Stop Dose Admin Acetaminophen 1,000 mg 08/16/20 11:03 Acetaminophen 500 Mg Tablet PO Q6H PRN Pain or Fever Aspirin 81 mg 08/16/20 09:00 08/18/20 10:00 Aspirin 81 Mg Enteric Tablet PO 81 mg QAM SHANIA Administration Atorvastatin Calcium 20 mg 08/17/20 09:00 08/18/20 10:00 Atorvastatin 20 Mg Tablet PO 20 mg DAILY SHANIA Administration Benzonatate 100 mg 08/15/20 23:49 08/17/20 08:24 Benzonatate 100 Mg Capsule PO 100 mg BID PRN Administration Cough Cefdinir 300 mg 08/17/20 10:45 08/18/20 10:00 Cefdinir 300 Mg Capsule PO 300 mg Q12HR SHANIA Administration Guaifenesin/Codeine Phosphate 10 ml 08/17/20 12:25 08/18/20 06:56 Guaifenesin/Codeine (*Crx) 200/20 Mg 10 Ml Syrup PO 10 ml Q4H PRN Administration Cough Levetiracetam 250 mg 08/18/20 2
[2020-08-18 14:00] VITALS: BP 103/58; PULSE 80; RESP 17; TEMP 36.3; O2SAT 99
--- NOTE | 2020-08-18 14:03 | P.DS_ITS ---
DS: Admitting Diagnosis Admitting Diagnosis Admitting Diagnosis: Right lower leg numbness. DS: Discharge Diagnosis Discharge Diagnosis (1) Numbness of right lower extremity: Code(s): R20.0 - Anesthesia of skin Status: Acute Assessment and Plan: This appears to have slowly improved over the past several days since symptoms started. No limited to slight decrease sensation in right foot. MS appears to be intact. Consider possible nerve impingement vs possible spinal related neuropathy. MRI of lumbar spine shows mild spondylosis; incidental finding of multiple masses with at least one suspicious for subcapsular hematoma although this appears to be noted on CTAP at [facility] last month. * Will d/c today. Okay for discharge from Neuro standpoint * F/u with Neuro after discharge (2) Seizure: Code(s): R56.9 - Unspecified convulsions Status: Acute Assessment and Plan: Reports of seizure while at [facility] last month. Patient unable to follow up with a Neurologist at [facility] as she has not received a call back to establish an appo intment. Questionable unwitnessed seizure at home prior to arrival for this hospital stay as well. No work up per Neurology during this hospital stay as of yet. We discussed prompt follow up with either Dr. Fallon or [facility] neurology to establish an appointment for this. Possibly anesthesia induced from recent nephrolithotomy procedure at [facility]? No other clear etiology for seizure at this moment as she does not appear to have acute stroke on Brain MRI or other remarkable intracranial finding to suggest etiology * F/u with Neuro after discharge. * Rec no driving * Continue Keppra per Neurology recommendations (3) Cerebrovascular accident (CVA): Qualifiers: CVA mechanism: unspecified Qualified Code(s): I63.9 - Cerebral infarction, unspecified Code(s): I63.9 - Cerebral infarction, unspecified Status: Chronic Assessment and Plan: MRI Brain shows old punctate old cerebellar and basal ganglia lacunar infarctions; no acute intracranial findings. Echo shows likely intracranial shunt. Dr. Fallon consulted and appreciate recommendations; rec Cardiology consult for possible CRISTÓBAL. Carotid dopplers unremarkable. She has had a history of a witnessed grand mal seizure at [facility] and concern for a possible seizure at home; no reported seizures since. See above * Await further rec from Neurology * Will continue on aspirin and statin for now * F/u with Neuro as outpatient * Will likely discharge today (4) Chronic kidney disease: Code(s): N18.9 - Chronic kidney disease, unspecified Status: Acute Assessment and Plan: Cr 2.3 today; stable. Appears to be below Cr from recent hospital stay at [facility] last month. Does have a urostomy. Follows Urologist Dr. Lerner at [facility] for that related care. Has a history of cancer treatment that may have affected her renal function. * Follow-up with urologist * Placed a call out to Dr. Lerner's office to relay information of likely subcapsular hematoma on right kidney on MRI lumbar spine findings. Appears to be evident on CTAP at [facility] s/p nephrolithotomy last month and will thus have patient follow up as an outpatient * BMP in 1 week (5) Chronic anemia: Code(s): D64.9 - Anemia, unspecified Status: Acute Assessment and Plan: Possibly anemia of chronic disease. H&H stable today. * Monitor H&H * F/u with PCP (6)
--- NOTE | 2020-08-18 14:03 | PM.DS ---
DS: Admitting Diagnosis Admitting Diagnosis Admitting Diagnosis: Right lower leg numbness. DS: Discharge Diagnosis Discharge Diagnosis (1) Numbness of right lower extremity: Code(s): R20.0 - Anesthesia of skin Status: Acute Assessment and Plan: This appears to have slowly improved over the past several days since symptoms started. No limited to slight decrease sensation in right foot. MS appears to be intact. Consider possible nerve impingement vs possible spinal related neuropathy. MRI of lumbar spine shows mild spondylosis; incidental finding of multiple masses with at least one suspicious for subcapsular hematoma although this appears to be noted on CTAP at [place] last month. Will d/c today. Okay for discharge from Neuro standpoint F/u with Neuro after discharge (2) Seizure: Code(s): R56.9 - Unspecified convulsions Status: Acute Assessment and Plan: Reports of seizure while at [facility] last month. Patient unable to follow up with a Neurologist at [facility] as she has not received a call back to establish an appointment. Questionable unwitnessed seizure at home prior to arrival for this hospital stay as well. No work up per Neurology during this hospital stay as of yet. We discussed prompt follow up with either Dr. Fallon or [facility] neurology to establish an appointment for this. Possibly anesthesia induced from recent nephrolithotomy procedure at [facility]? No other clear etiology for seizure at this moment as she does not appear to have acute stroke on Brain MRI or other remarkable intracranial finding to suggest etiology F/u with Neuro after discharge. Rec no driving Continue Keppra per Neurology recommendations (3) Cerebrovascular accident (CVA): Qualifiers: CVA mechanism: unspecified Qualified Code(s): I63.9 - Cerebral infarction, unspecified Code(s): I63.9 - Cerebral infarction, unspecified Status: Chronic Assessment and Plan: MRI Brain shows old punctate old cerebellar and basal ganglia lacunar infarctions; no acute intracranial findings. Echo shows likely intracranial shunt. Dr. Fallon consulted and appreciate recommendations; rec Cardiology consult for possible CRISTÓBAL. Carotid dopplers unremarkable. She has had a history of a witnessed grand mal seizure at [place] and concern for a possible seizure at home; no reported seizures since. See above Await further rec from Neurology Will continue on aspirin and statin for now F/u with Neuro as outpatient Will likely discharge today (4) Chronic kidney disease: Code(s): N18.9 - Chronic kidney disease, unspecified Status: Acute Assessment and Plan: Cr 2.3 today; stable. Appears to be below Cr from recent hospital stay at [place] last month. Does have a urostomy. Follows Urologist Dr. Lerner at [facility] for that related care. Has a history of cancer treatment that may have affected her renal function. Follow-up with urologist Placed a call out to Dr. Lerner's office to relay information of likely subcapsular hematoma on right kidney on MRI lumbar spine findings. Appears to be evident on CTAP at [place] s/p nephrolithotomy last month and will thus have patient follow up as an outpatient BMP in 1 week (5) Chronic anemia: Code(s): D64.9 - Anemia, unspecified Status: Acute Assessment and Plan: Possibly anemia of chronic disease. H&H stable today. Monitor H&H F/u with PCP (6) Urinary tract infection: Qualifiers: Hematuria presence: without hematuria Urinary tract infection type: acute cystitis Qualified Code(s): N30.00 - Acute cystitis without hematuria Code(s): N39.0 - Urinary tract infection, site not specified Status: Acute Assessment and Plan: Patient has urostomy.
--- NOTE | 2020-08-18 14:07 | PCPTNOTE ---
Attempted to see patient for Physical Therapy this afternoon. Patient stated that she was getting ready to go home and did not want to do therapy.
== END 2020-08-18 16:00 | disposition home or self-care (01) ==
LOC: ANHED 18:36 → ANH2MED 18:59
PROVIDERS: Nurse Practitioner; Physician Assistant; Admitting Provider Student in an Organized Health Care Education/Training Program; Emergency Provider Emergency Medicine; Visit Provider Physician Assistant
DX: I63.9 Cerebral infarction, unspecified (principal); R20.0 Anesthesia of skin; R56.9 Unspecified convulsions; N18.9 Chronic kidney disease, unspecified; D64.9 Anemia, unspecified; Q21.1 Atrial septal defect; N39.0 Urinary tract infection, site not specified; B96.20 Unspecified Escherichia coli [E. coli] as the cause of diseases classified elsewhere; R93.421 Abnormal radiologic findings on diagnostic imaging of right kidney; M47.816 Spondylosis without myelopathy or radiculopathy, lumbar region; I65.23 Occlusion and stenosis of bilateral carotid arteries; Z85.41 Personal history of malignant neoplasm of cervix uteri; Z90.710 Acquired absence of both cervix and uterus; Z86.73 Personal history of transient ischemic attack (TIA), and cerebral infarction without residual deficits; Z93.6 Other artificial openings of urinary tract status
CPT/HCPCS: 36415; 70450; 70551; 72148; 80048; 80053; 80061; 80076; 80307; 81001; 83036; 83735; 84443; 84484; 85025; 85027; 85610; 85730; 87077; 87086; 87088; 87186; 93005; 93306; 93880; 96365; 96374; 96375; 97110; 97116; 97161; 97165; 99285; A9270; G0378; G0379; J0696; J2060

== ENCOUNTER 2020-09-01 08:57 | Emergency (ER) | payer MEDICAID, SELFPAY ==
--- NOTE | ~2020-09-01 | CT_ITS ---
EXAMINATION: CT abdomen pelvis wo con DATE: 09/01/2020 11:11 INDICATION: Anterior. Elevated white blood count.] Shortness of breath. TECHNIQUE: Computed tomography (CT) of the abdomen and pelvis was performed without intravenous contr ast. Automated exposure control and iterative reconstruction technique were employed. Exam dose: 160 9.58 mGy-cm total exam DLP. COMPARISON: None. FINDINGS: There is prominent posterior medial right basilar atelectasis with air bronchograms. Mild d iscoid atelectasis or scarring in the posterior left lung base. No pericardial or pleural effusion. There is coronary artery calcification. Status post cholecystectomy. The liver, bile ducts, spleen, pancreas, pancreatic duct and adrenal glands appear normal. Postoperative change from ileostomy. There is left renal atrophy and scarring Indeterminate approximately 1.8 cm lower pole left renal mass with attenuation of approximately 24 Ho unsfield units. Examination is limited due to streak artifact from contrast material in the colon. Co nsider repeat examination after clearing of contrast from the colon, preferably with IV contrast for greater definition of the kidneys. Suggestion of an indeterminate approximately 2.7 cm upper pole left renal mass. Additional renal mass es on the right are difficult to exclude on this limited noncontrast examination. Repeat examination with IV contrast material would be more definitive for evaluation of renal masses. There is an approximately 6 x 9 mm nonobstructing calculus and at least one or 2 additional very smal l nonobstructing right renal calculi. There is a tiny 2.5 x 4 mm calculus within the right renal pelvis. There is mild right hydroureterone phrosis; no apparent obstructing calculus is evident. There is no hydronephrosis on the left. Normal caliber of the abdominal aorta, with atherosclerotic calcification. No intraperitoneal or retr operitoneal or pelvic mass lesion or adenopathy or ascites is evident. The uterus and adnexal areas are unremarkable. No bowel obstruction is detected. No intraperitoneal free air. There is a large fat-containing periumbilical hernia. Diffuse osteopenia. IMPRESSION: Status post cystectomy and ileostomy Moderate right hydroureteronephrosis Suggestion of bilateral indeterminate renal masses; consider repeat CT examination with IV contrast m aterial for better definition Nonobstructive right nephrolithiasis Approximately 2.5 x 4 mm right renal pelvic calculus Left renal scarring and volume loss Status post cholecystectomy Posteromedial right basilar atelectasis Reviewed, dictated and finalized at [facility]. Reviewed, dictated and finalized at [facility]. ORATE ASSOCIATE ATTORNEY IMPRESSION: Status post cystectomy and ileostomy Moderate right hydroureteronephrosis Suggestion of bilateral indeterminate renal masses; consider repeat CT examinat ion with IV contrast material for better definition Nonobstructive right nephrolithiasis Approximately 2.5 x 4 mm right renal pelvic calculus Left renal scarring and volume loss Status post cholecystectomy Posteromedial right basilar atelectasis
--- NOTE | ~2020-09-01 | XR_ITS ---
EXAMINATION: XR chest 1V portable DATE: 09/01/2020 09:32 INDICATION: Cough and fever. Shortness of breath. TECHNIQUE: A single frontal view of the chest was obtained. COMPARISON: Chest radiograph 06/12/2012 FINDINGS: There is marked elevation of right hemidiaphragm. There is mild atelectasis at right lung b ase. No pleural effusion or pneumothorax. The heart size is normal. Surgical clips in the right upper quadrant are likely from cholecystectomy. IMPRESSION: 1. Marked elevation of right hemidiaphragm, new from 06/12/2012. 2. Mild atelectasis at right lung base. Reviewed, dictated and finalized at [facility]. PAPER MANAGER
--- NOTE | 2020-09-01 09:01 | ECG_ITS ---
Measurements Intervals [place] Rate: 97 P: 22 AK: 167 QRS: 28 QRSD: 80 T: 1 QT: 314 QTc: 400 Interpretive Statements SINUS RHYTHM VOLTAGE CRITERIA FOR LVH CONSIDER INFERIOR INFARCT, AGE INDETERMINATE BASELINE ARTIFACT- I, II, AVR, AVL, AVF, V4 ABNORMAL ECG Electronically Signed On 09-01-2020 9:28:28 WHITING CAN WORKER by Oli Crooks D.O.
--- NOTE | 2020-09-01 09:10 | ED.GENADULT ---
HPI - General Adult General Chief complaint: Shortness of Breath/Dyspnea Stated complaint: AMBULANCE Time Seen by Provider: 09/01/20 09:01 Source: patient and family Mode of arrival: EMS Limitations: other (Poor historian) History of Present Illness HPI narrative: Jolanta is a 54F with a PMH of cervical cancer, ASD, seizure disorder, chronic anemia, CKD and previous CVA that presented to the ER via EMS for SOB. For the last 2 days she has had worsening SOB, cough and fevers up to 102 as well as nausea. No CP, syncope/near-syncope. She was recently admitted to [facility] for UTI, weakness, and paresthesias. She felt well after being discharged until 2 days ago. Related Data Allergies Allergy/AdvReac Type Severity Reaction Status Date / Time No Known Allergies Allergy Verified 08/15/20 14:30 Review of Systems Constitutional: Constitutional: Reports chills, Reports fatigue and Reports fever(s) Eyes: Eyes: Reports no additional eye complaints ENT: Reports system reviewed and no additional complaints, except as documented Cardiovascular: Cardiovascular: Denies chest pain, Denies rapid heart rate and Denies radiating jaw, neck or arm pain Respiratory: Respiratory: Reports as per HPI Gastrointestinal: Gastrointestinal: Denies constipation, Denies diarrhea, Reports nausea and Denies vomiting Genitourinary: Genitourinary: Reports no additional female genitourinary complaints Musculoskeletal: Musculoskeletal: Reports no additional musculoskeletal complaints Integumentary/Breasts: Skin/Breast: Reports system reviewed and no additional complaints, except as docu Neurologic: Reports system reviewed and no additional complaints, except as documented Psychiatric: Psychiatric: Reports no additional psychiatric complaints Endocrine: Endocrine: Reports no additional endocrine complaints Hematologic/Lymphatic: Hematologic/Lymphatic: Reports no additional hematologic/lymphatic complaints Allergic/Immunologic: Allergic/Immunologic: Reports no additional allergic/immunologic complaints [facility], [facility] Past Medical History Medical History Cervical cancer (~2011) Status post chemotherapy and radiation. Considered to be cured. Chronic anemia Chronic kidney disease Kidney stones Surgical History Surgical History History of cholecystectomy History of nephrolithotomy with removal of calculi (~07/2020) History of total cystectomy (~02/2020) For treatment of bladder fistula. History of umbilical hernia repair History of urinary diversion procedure History of urostomy Family History Family History Mother Cerebrovascular accident Father Heart disease Social History Social History Social History: Surrogate decision maker: Ventura Joy (son) or Gavin Escobar (brother). Code status: Full code. Smoking status: Never smoker Alcohol intake: never Substance use: never Substance use type: does not use Additional living arrangements comments: Lives in [place] with her son and their dog Additional occupation/education comments: Currently unemployed. Worked for 20+ years at [employer]. Gender identity (if verbalized by the patient): Female Spiritual care concerns: No Exam Const: General: no acute distress and alert Orientation/consciousness: patient oriented x3 Limitations: No altered mental status HENMT: Other: normocephalic, atrauamtic Eyes: Conjunctivae: conjunctivae normal Pupils: Equal, round and reactive pupils present Neck: Neck: normal visual inspection Chest: Chest palpation & inspection: normal inspection of the chest Resp: Effort & Inspection: normal respiratory effort Other: Decreased breath sounds in the bases bilaterally and the RML Cardio: Rate:
[2020-09-01 09:14] VITALS: BP 109/73; PULSE 98; RESP 20; TEMP 36.3; O2SAT 100
[2020-09-01 09:28] VITALS: PULSE 98; O2SAT 100
[2020-09-01 09:28] LABS: Hematocrit 29.5 % (35.0-49.0); Hemoglobin 9.1 g/dL (12.0-15.0); Mean Corpuscular HGB Conc 30.8 g/dL (32.0-36.0); Mean Corpuscular Hemoglobin 28.1 pg (27.0-31.0); Mean Platelet Volume 8.9 fl (9.2-11.8); Platelet Count Result 461 K/mm3 (150-420); Red Blood Count 3.24 M/mm3 (4.20-5.40); Red Cell Distribution Width 15.2 % (11.6-14.4); White Blood Count 19.4 K/mm3 (4.8-10.8)
[2020-09-01 09:46] LABS: Influenza Control Valid (Valid); SARS-CoV-2 Ag Negative (Negative)
[2020-09-01 09:47] LABS: INR 1.1; Prothrombin Time 11.9 Seconds (9.50-12.10)
[2020-09-01 09:51] LABS: Alanine Aminotransferase 10 U/L (14-59); Albumin Level 2.6 g/dL (3.4-5.0); Alkaline Phosphatase 154 U/L (46-116); Anion Gap 24 mmol/L (8-16); Aspartate Amino Transferase < 10 U/L (15-37); Bilirubin,Total 0.3 mg/dL (0.00-1.00); Blood Urea Nitrogen 76 mg/dL (7-18); Calcium 10.2 mg/dL (8.5-10.1); Carbon Dioxide 8 mmol/L (21-32); Chloride 101 mmol/L (98-108); Estimated CRCL calculation 9 ml/min; Estimated Glomerular Filt Rate 4; Glucose 137 mg/dL (70-99); Osmolality Calculated 300 mOsm/kg (285-295); Potassium 4.7 mmol/L (3.5-5.1); Sodium 133 mmol/L (136-145); Total Protein 9.9 g/dL (6.4-8.2)
[2020-09-01 09:53] LABS: Troponin I 6.9 ng/L (0.00-60.4)
[2020-09-01 09:57] LABS: CRP > 25.0 mg/dL (0.0-0.9)
[2020-09-01 09:59] LABS: BNP 90 pg/mL (0-100)
[2020-09-01 10:00] LABS: Band Neutrophils Percent 0 % (0-6); Basophils Percent Manual 0 % (0-1); Eosinophils Absolute Manual 0.58 K/mm3 (0.02-0.5); Eosinophils Percent Manual 3 % (1-6); Lymphocytes Absolute Manual 2.13 K/mm3 (1.1-4.5); Lymphocytes Percent Manual 11 % (18-44); Monocytes Absolute Manual 1.16 K/mm3 (0.1-0.90); Monocytes Percent Manual 6 % (3-9); Neutrophils Absolute Manual 15.52 K/mm3 (1.7-7.2); Neutrophils Percent Manual 80 % (46-73); Total Cells Counted 100
[2020-09-01 10:01] LABS: D Dimer 2.03 mg/L (0.19-0.50)
--- NOTE | 2020-09-01 10:13 | PC.NURSE ---
Pt. has produced no urine in urostomy bag. Informed pts. 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
--- NOTE | 2020-09-01 10:36 | PC.NURSE ---
ERP speaking c at [place]. POC for transfer discussed.
--- NOTE | 2020-09-01 13:19 | PC.NURSE ---
Report called to NATHANIEL Christiansen at [facility] bed [id number] at this time. All questions answered. [place] does not have an ambulance for transfers available today.
[2020-09-01 13:59] VITALS: BP 101/68; PULSE 80; RESP 16; TEMP 36.8; O2SAT 100
== END 2020-09-01 14:01 | disposition short-term general hospital (02) ==
PROVIDERS: Emergency Provider Family Medicine
DX: N17.9 Acute kidney failure, unspecified (principal)
CPT/HCPCS: 36415; 71045; 74176; 80053; 83880; 84484; 85025; 85380; 85610; 86140; 87426; 87804; 93005; 99285

== ENCOUNTER 2021-02-14 16:25 | Inpatient (IN) | payer MEDICARE, MEDICAID, SELFPAY ==
[2021-02-14] VITALS (11 sets, daily range): BP systolic 107–130; BP diastolic 56–76; PULSE 96; RESP 120; TEMP 36.3; O2SAT 95–100
--- NOTE | ~2021-02-14 | XR_ITS ---
EXAMINATION: XR abdomen obstructive series DATE: 02/16/2021 06:01 INDICATION: Partial small bowel obstruction TECHNIQUE: Frontal supine and upright views of the abdomen were obtained. COMPARISON: 02/15/2021 FINDINGS: Small amount of gas scattered throughout normal caliber colon. Additional small amount of gas within a single mildly dilated loop of small bowel in the left upper quadrant consistent with given history of partial small bowel obstruction. Cholecystectomy clips in right upper quadrant. Nasogastric tube t ip at the gastric antrum with proximal side-port in the body of the stomach. Right retrograde uretera l stent in expected position extending to a right lower quadrant ileal conduit. No free intraperitone al gas. Elevation of the right hemidiaphragm. Mild inferolateral lingular atelectasis. Heart size i s normal. IMPRESSION: 1. Persistent at least partial small bowel obstruction. Reviewed, dictated and finalized at location [facility].
--- NOTE | ~2021-02-14 | CT_ITS ---
EXAMINATION: CT abdomen pelvis wo con DATE: 02/14/2021 21:12 INDICATION: Abdominal pain. Dark urine. TECHNIQUE: Computed tomography (CT) of the abdomen and pelvis was performed without intravenous contr ast. The dose-length product was 1445.94 mGy-cm. Automated exposure control and iterative reconstruct ion technique were employed. COMPARISON: CT dated 09/01/2020 FINDINGS: There is right lower lobe airspace consolidation. Heart size is normal. No significant pleu ral or pericardial effusion. Status post cholecystectomy. There is surgical change consistent with cy stectomy with ileal diversion. There is a percutaneous catheter extending into the right renal pelvis . There is a ventral hernia containing small bowel the proximal small bowel is dilated with the dista l small bowel exiting the hernia is relatively decompressed. The colon is decompressed. The spleen, p ancreas, adrenal glands and kidneys are unremarkable. No significant hydronephrosis. IMPRESSION: 1. Small bowel obstruction with transition at the ventral abdominal wall hernia. No evidence for stra ngulation. 2: Status post cystectomy with ileal diversion. No significant hydronephrosis. 3: Right lower lobe consolidation may represent atelectasis or developing pneumonia. Reviewed, dictated and finalized at location [facility]. IMPRESSION: 1. Small bowel obstruction with transition at the ventral abdominal wall hernia . No evidence for strangulation. 2: Status post cystectomy with ileal diversion. No significant hydronephrosis. 3: Right lower lobe consolidation may represent atelectasis or developing pneum onia.
--- NOTE | ~2021-02-14 | XR_ITS ---
EXAMINATION: XR abdomen NG/feed tube insert DATE: 02/15/2021 02:43 INDICATION: Nasogastric tube placement TECHNIQUE: A supine view of the abdomen and lower chest was obtained for evaluation of feeding tube placement. COMPARISON: CT dated 02/14/2021 FINDINGS: Nasogastric tube tip at the gastric antrum with proximal side-port in the body of the stomach. Cholec ystectomy clips in right upper quadrant. Right retrograde ureteral stent with an ileal conduit. Small amount of gas within nondilated small bowel and colon in the upper abdomen. Elevated right hemidiaph ragm. Atelectasis at the medial right lung base. Heart size is normal. IMPRESSION: 1. Nasogastric tube in the stomach. Reviewed, dictated and finalized at location [facility].
[2021-02-14 17:01] LABS: Basophils Percent Auto 0.1 % (0.2-1.2); Hematocrit 38.2 % (37.0-47.0); Hemoglobin 12.1 g/dL (12.0-15.0); Immature Granulocyte Percent A 0.5 % (0-0.5); Lymphocytes Absolute Auto 1.92 K/mm3 (0.9-3.2); Lymphocytes Percent Auto 9.5 % (18.3-44.2); Mean Corpuscular HGB Conc 31.7 g/dl (32-36); Mean Corpuscular Hemoglobin 27.1 pg (26-34); Mean Corpuscular Volume 85.5 fl (80-100); Mean Platelet Volume 9.1 fl (7.4-10.4); Monocytes Absolute Auto 0.8 K/mm3 (0.1-0.6); Monocytes Percent Auto 3.8 % (2.6-8.5); Neutrophils Absolute Auto 17.4 K/mm3 (1.3-6.7); Neutrophils Percent Auto 86.1 % (45.5-73.1); Platelet Count Result 414 k/mm3 (150-375); Red Blood Count 4.47 M/mm3 (4.2-5.4); Red Cell Distribution Width 14.9 % (11.5-14.5); White Blood Count 20.2 K/mm3 (4.5-10.0)
[2021-02-14 17:12] LABS: Alanine Aminotransferase 17 U/L (4-35); Albumin Level 4.6 g/dL (3.5-5.1); Alkaline Phosphatase 133 U/L (38-126); Anion Gap 18 mmol/L (8-16); Aspartate Amino Transferase 47 U/L (14-36); Bilirubin,Total 0.6 mg/dL (0.2-1.3); Blood Urea Nitrogen 36 mg/dL (7-17); Calcium 10.9 mg/dL (8.4-10.2); Carbon Dioxide 15 mmol/L (22-30); Chloride 111 mmol/L (98-107); Estimated CRCL calculation 18 ml/min; Estimated Glomerular Filt Rate 12; Glucose 135 mg/dL (65-105); Lipase 117 U/L (23-300); Potassium 5.2 mmol/L (3.4-5.0); Sodium 144 mmol/L (137-145)
--- NOTE | 2021-02-14 20:51 | ED.NAVMDI ---
HPI - Nausea/Vomiting/Diarrhea General Chief complaint: Nausea/Vomiting/Diarrhea Stated complaint: N/V X2D Time Seen by Provider: 02/14/21 20:35 Source: patient Mode of arrival: ambulatory Limitations: no limitations History of Present Illness HPI Narrative: Patient is a 55-year-old female complaining of nausea and vomiting, cannot keep anything down x2 days. Patient describes the vomitus as nonbilious nonbloody. Patient also complaining of upper abdominal pain mild currently does not have any pain, states only when she vomits. Patient denies any chest pain, shortness of breath, diarrhea, fever or chills. Related Data Allergies Allergy/AdvReac Type Severity Reaction Status Date / Time No Known Allergies Allergy Verified 02/14/21 21:35 Review of Systems Review of Systems: All systems reviewed & are unremarkable except as noted in HPI and below Constitutional: Constitutional: Denies body ache(s), Denies chills, Denies excessive sweating, Denies fatigue, Denies fever(s), Denies headache(s), Denies lethargy, Denies malaise, Denies weakness and Denies weight loss Eyes: Eyes: Denies blurry vision, Denies change in vision and Denies loss of vision ENT: Denies dizziness, Denies ear discharge, Denies headache(s), Denies lip swelling, Denies epistaxis, Denies nasal congestion, Denies neck pain, Denies throat swelling and Denies tongue swelling Cardiovascular: Cardiovascular: Denies chest pain, Denies chest pain at rest, Denies chest pain with activity, Denies diaphoresis, Denies rapid heart rate, Denies edema, Denies irregular heart rhythm, Denies lightheadedness, Denies palpitations, Denies dyspnea and Denies dyspnea on exertion Respiratory: Respiratory: Denies chest congestion, Denies cough, Denies hemoptysis, Denies dyspnea and Denies dyspnea on exertion Gastrointestinal: Gastrointestinal: Denies melena, Denies hematochezia, Denies diarrhea and Denies hematemesis Musculoskeletal: Musculoskeletal: Denies abnormal gait, Denies deformity, Denies joint swelling, Denies limited range of motion, Denies neck pain and Denies numbness Neurologic: Denies Abnormal speech present, Denies abnormal gait, Denies confusion, Denies dizziness, Denies headache(s), Denies focal weakness, Denies loss of vision, Denies numbness, Denies Other visual disturbances, Denies Sensory deficit (Neuro) and Denies weakness Psychiatric: Psychiatric: Denies confusion, Denies depression, Denies auditory hallucinations, Denies homicidal ideation and Denies suicidal ideation Endocrine: Endocrine: Denies cold intolerance, Denies excessive sweating, Denies fatigue, Denies heat intolerance and Denies palpitations Hematologic/Lymphatic: Hematologic/Lymphatic: Denies easy bleeding and Denies easy bruising Allergic/Immunologic: Allergic/Immunologic: Denies lip swelling, Denies throat swelling and Denies tongue swelling PMFSH Past Medical History Medical History Cervical cancer (~2011) Status post chemotherapy and radiation. Considered to be cured. Chronic anemia Chronic kidney disease Kidney stones Surgical History Surgical History History of cholecystectomy History of nephrolithotomy with removal of calculi (~07/2020) History of total cystectomy (~02/2020) For treatment of bladder fistula. History of umbilical hernia repair History of urinary diversion procedure History of urostomy Family History Family History Mother Cerebrovascular accident Father Heart disease Social History Social History Social History: Surrogate decision maker: Ventura Joy (son) or Gavin Escobar (brother). Code status: Full code. Smoking status: Never smoker Alcohol intake: never Substance use: never Substance use type: does not use Additional rroy
--- NOTE | 2021-02-14 21:04 | PC.NURSE ---
Pt to imaging at this time.
[2021-02-14] MEDS: LACTATED RINGERS 1,000 ML 999 ML IV CONT (21:30)
[2021-02-14] MEDS: PROMETHAZINE HCL 25 MG/ML AMPUL 12.5 MG IV PUSH (21:31)
[2021-02-14] MEDS: ONDANSETRON INJ 4 MG/2 ML VIAL IV PUSH (21:31)
[2021-02-14 22:00] LABS: Add Urine Microscopic? YES; Amorphous Sediment Urine Few; Appearance Urine Cloudy (Clear); Bacteria Urine 3+ /hpf; Bilirubin Urine Negative (Negative); Blood Urine Negative (Negative); Color Urine Yellow (Yellow); Glucose Urine UA Negative (Negative); Ketones Urine Negative (Negative); Leukocyte Esterase Ur 2+ LEU/UL (Negative); Mucus Urine Heavy /lpf; Nitrate Urine Negative (Negative); Protein Urine 2+ mg/dL (Negative); Specific Grav Ur 1.014 (1.001-1.035); Squamous Epithelial Cell Urine Many /hpf (Few); Urobilinogen Urine Negative mg/dL (<2.0); WBC Clumps Urine Present /HPF; WBC Urine >75 /hpf
[2021-02-14] MEDS: PANTOPRAZOLE SODIUM IV 40 MG VIAL IV PUSH (22:18)
--- NOTE | 2021-02-14 22:52 | PC.NURSE ---
Update pt sister at this time.
--- NOTE | 2021-02-14 23:50 | PC.NURSE ---
unsuccessful attempts at collecting blood cultures, another staff member to attempt.
[2021-02-15] VITALS (47 sets, daily range): BP systolic 90–133; BP diastolic 52–97; PULSE 91–116; RESP 18–21; TEMP 36.2–36.5; O2SAT 94–100; BMI 42.3
--- NOTE | 2021-02-15 00:03 | PC.NURSE ---
VERBAL ORDER FROM [facility] DR KANG TO GIVE DILAUDID 0.5 FOR PAIN.
[2021-02-15 00:26] LABS: Lactic Acid Reflex 1.3 mmol/L (0.7-2.1)
--- NOTE | 2021-02-15 01:03 | PC.NURSE ---
delaying NG insertion due to pt request for zofran prior to administration of other medications pre-insertion.
[2021-02-15] MEDS: ONDANSETRON INJ 4 MG/2 ML VIAL IV PUSH (01:09)
[2021-02-15] MEDS: LORazepam INJ (*CRX) 2 MG/ML VIAL 1 MG IV PUSH (01:21)
[2021-02-15] MEDS: HYDROmorphone HCL INJ (*CRX) 1 MG/ML SYR 0.5 MG IV PUSH (01:49)
--- NOTE | 2021-02-15 02:00 | PC.NURSE ---
Unsuccessful at 2 NG tube insertion attempts with RN, rim fire charger operator, and tech present. Pt reports fracture in high school that caused issues with nasal passage. painting supervisor contacted by rim fire charger operator, printing shop supervisor to come to unit to assist with insertion. Smaller NG pulled for insertion.
[2021-02-15] MEDS: SODIUM CHLORIDE 0.9% IV 1,000 ML 999 ML IV CONT (05:18)
--- NOTE | 2021-02-15 07:10 | PC.NURSE ---
report received from date night caregiver. ng tube remains at low intermittent suction. continue waiting bed availability at [facility]
[2021-02-15 07:53] LABS: Basophils Percent Auto 0.3 % (0.2-1.2); Eosinophils Absolute Auto 0.3 K/mm3 (0-0.3); Eosinophils Percent Auto 1.9 % (0-4.4); Hematocrit 34.7 % (37.0-47.0); Hemoglobin 10.7 g/dL (12.0-15.0); Immature Granulocyte Absolute 0.06 K/mm3 (0.00-0.031); Immature Granulocyte Percent A 0.4 % (0-0.5); Lymphocytes Absolute Auto 1.34 K/mm3 (0.9-3.2); Lymphocytes Percent Auto 8.6 % (18.3-44.2); Mean Corpuscular HGB Conc 30.8 g/dl (32-36); Mean Corpuscular Volume 87.6 fl (80-100); Mean Platelet Volume 9.3 fl (7.4-10.4); Monocytes Absolute Auto 0.9 K/mm3 (0.1-0.6); Monocytes Percent Auto 5.7 % (2.6-8.5); Neutrophils Absolute Auto 12.9 K/mm3 (1.3-6.7); Neutrophils Percent Auto 83.1 % (45.5-73.1); Platelet Count Result 312 k/mm3 (150-375); Red Blood Count 3.96 M/mm3 (4.2-5.4); Red Cell Distribution Width 15.2 % (11.5-14.5); White Blood Count 15.5 K/mm3 (4.5-10.0)
[2021-02-15 08:03] LABS: Anion Gap 12 mmol/L (8-16); Blood Urea Nitrogen 41 mg/dL (7-17); Calcium 9.4 mg/dL (8.4-10.2); Carbon Dioxide 17 mmol/L (22-30); Chloride 113 mmol/L (98-107); Estimated CRCL calculation 18 ml/min; Estimated Glomerular Filt Rate 12; Glucose 104 mg/dL (65-105); Potassium 4.5 mmol/L (3.4-5.0); Sodium 142 mmol/L (137-145)
[2021-02-15] MEDS: LACTATED RINGERS 1,000 ML 150 ML IV CONT (14:41)
--- NOTE | 2021-02-15 16:00 | PM.IMHP ---
H&P: HPI History of Present Illness Date/Time: 02/15/21 16:00 Chief Complaint: Nausea and vomiting. 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 She reports that the lump in my stomach? has gotten a bit bigger and more tender over the last 2 days with associated intractable nausea and vomiting. Her emesis is described as nonbilious and nonbloody in nature and is mostly yellow and bitter liquid. She was profoundly dehydrated on presentation with an acute kidney injury and evidence of small-bowel obstruction with a transition at her ventral abdominal wall hernia, but without evidence of strangulation. Due to her complex history and numerous abdominal surgeries it was felt that she would best be served by returning to [place] where she has had previous treatment. She has been accepted but has been waiting in the emergency department for nearly 20 hours and I have been asked to admit her in this setting. She is feeling better after an NG tube has been placed and thinks she may have passed a small amount of flatus earlier this evening. She feels extremely dehydrated is asking for water at this time. She has had very little output from her urostomy overnight. No significant abdominal pain. Her nausea has improved. She denies fever, chills, and sweats. No chest pain, shortness of breath, or cough. She denies diarrhea. No previous history of bowel obstruction. Review of Systems Review of Systems: Narrative: Twelve systems were reviewed with pertinent positives and negatives as per HPI. No cold or flu symptoms. She denies exposure to those positive for COVID-19. She denies concerns for aspiration. Except as documented, all other systems were reviewed and are negative. [facility] Past Medical History Medical History (Updated 02/15/21 @ 19:37 by Bety Costa PA-C) Abnormal echocardiogram Echocardiogram in July 2020 showed evidence of a small ASD versus PFO. Cerebrovascular accident Brain MRI on 08/16/2020 showed punctate old cerebellar basal ganglia lacunar infarctions. Cervical cancer (~2011) Status post chemotherapy and radiation. Considered to be cured. Chronic anemia Chronic kidney disease Kidney stones Surgical History Surgical History History of cholecystectomy History of nephrolithotomy with removal of calculi (~07/2020) History of total cystectomy (~02/2020) For treatment of bladder fistula. History of umbilical hernia repair History of urinary diversion procedure History of urostomy Family History Family History Mother Cerebrovascular accident Father Heart disease Social History Social History Social History: Surrogate decision maker: Ventura Joy (son) or Gavin Escobar (brother). Code status: Full code. Smoking status: Never smoker Second hand tobacco smoke exposure: No Alcohol intake: never Substance use: never Substance use type: does not use Additional living arrangements comments: Lives in [place] with her son and their dog Additional occupation/education comments: Currently unemployed. Worked for 20+ years at [employer]. Gender identity (if verbalized by the patient): Female Sexual Orientation (if Verbalized by the Patient): Straight or Heterosexual Spiritual care concerns: No Meds Home Medications and Allergies Home Medications Medication Instructions Recorded Confi
--- NOTE | 2021-02-15 17:34 | ADMGEN ---
This patient, Jolanta White, was admitted to Medical Room 249-01. Patient/family oriented to hospital policies and general routines including ID bracelet, bed and alarms, visiting hours, pain management, procedures, bathroom and other care routines, personal items, smoking policy, room service/diet, and visiting hours. Information on how to activate the Rapid Response Team has been discussed. Patient/Family are encouraged to report perceived risks to care and to ask questions if they do not understand what they are told or what they should do.
--- NOTE | 2021-02-15 18:37 | PM.CNGS ---
Assessment and Plan Assessment and plan (1) Small bowel obstruction: Onset Date: ~02/13/21 Code(s): K56.609 - Unspecified intestinal obstruction, unspecified as to partial versus complete obstruction Status: Acute Assessment and Plan: This is the reason for our consultation. This appears to be resolving with NG decompression and bowel rest. Will repeat abdominal film tomorrow morning. Recommend continued low intermittent suction on the NG tube. I did try to decompress the possible ventral incisional hernia just above her umbilicus. I am not sure I got this completely reduced. Patient is however passing flatus and has had a small stool smear therefore may be resolving her apparent partial small-bowel obstruction. I agree with Dr. romero assessment that the patient should be transferred to [facility] where all her other records and previous surgeries have been performed. She waited overnight in the ER but they were unable to transfer her because of no beds. She is cleared or accepted for admission over there and will transfer hopefully within the next 24 hours According to my information from Dr. Lora in the ER here. I would suggest transfer with the NG tube in if she goes tonight. Please send the CT disc with her if she goes. (2) Acute kidney injury superimposed on chronic kidney disease: Onset Date: Unknown Code(s): N17.9 - Acute kidney failure, unspecified; N18.9 - Chronic kidney disease, unspecified Status: Acute Assessment and Plan: This is difficult to tell in view of the patient's ileal conduit stoma. This may be common eyes to. However the patient does feel better on antibiotics and she does have a stent through which some bacteria may get into the upper urinary tract. Patient has been started on IV antibiotics which I agree with. Urinalysis from the fluid from her ileal conduit is showing increased WBCs compared to her last visit there is also bacteruria . (3) Chronic anemia: Code(s): D64.9 - Anemia, unspecified Status: Acute Assessment and Plan: Hemoglobin down 10.7. Will repeat in the morning and recheck her white count. This has decreased in the last 24 hours. (4) Bacteriuria with pyuria: Code(s): R82.71 - Bacteriuria; R82.81 - Pyuria Status: Acute Assessment and Plan: Most likely related to her having a ileal conduit. However, she does have much more bacteria and white cells in the urine than she did when it was checked during her admission last year. She may have a current urinary tract infection that is improved with antibiotics. She may need to be on a chronic low-dose antibiotic while the stent is in through her ilealcoduit will leave this up to urology at [facility]. (5) Morbid obesity with BMI of 40.0-44.9, adult: Code(s): E66.01 - Morbid (severe) obesity due to excess calories; Z68.41 - Body mass index [BMI]40.0-44.9, adult Status: Acute Assessment and Plan: This complications the patient's picture. She is somewhat mobile apparently. She would be a difficult laparotomy or laparoscopic approach for repair of hernia should that be the reason for her bowel obstruction. Hopefully, she will continue resolve this bowel obstruction and will not need surgery. History of Present Illness Consult details Consult date: 02/15/21 Reason for consult: abdominal pain Requesting physician: Chan Rowell MD Narrative: Patient is a pleasant morbidly obese 55-year-old white female with a history of cervical cancer road Ng into her bladder. All her previous surgeries have been done in [facility]. She is admitted at this time because there are no beds at [facility]. She presented to the emergency room last night with signs and symptoms of a possible small-bowel obstruction. Reviewing the CT scan of the abdomen and pelvis reveals that this may be associated with a ventral incisional hernia near the umbilicus. She does have a prior history of
[2021-02-16] MEDS: LACTATED RINGERS 1,000 ML 125 ML IV CONT ×2 (00:23→08:43)
[2021-02-16 05:42] LABS: Hematocrit 28.6 % (37.0-47.0); Mean Corpuscular HGB Conc 31.5 g/dl (32-36); Mean Corpuscular Hemoglobin 27.3 pg (26-34); Mean Corpuscular Volume 86.7 fl (80-100); Mean Platelet Volume 9.9 fl (7.4-10.4); Platelet Count Result 269 k/mm3 (150-375); Red Cell Distribution Width 15.1 % (11.5-14.5); White Blood Count 10.2 K/mm3 (4.5-10.0)
[2021-02-16 05:55] LABS: Alanine Aminotransferase 27 U/L (4-35); Albumin Level 3.3 g/dL (3.5-5.1); Alkaline Phosphatase 83 U/L (38-126); Anion Gap 12 mmol/L (8-16); Aspartate Amino Transferase 37 U/L (14-36); Bilirubin,Total 0.4 mg/dL (0.2-1.3); Blood Urea Nitrogen 44 mg/dL (7-17); Calcium 8.8 mg/dL (8.4-10.2); Carbon Dioxide 14 mmol/L (22-30); Chloride 116 mmol/L (98-107); Estimated CRCL calculation 20 ml/min; Estimated Glomerular Filt Rate 12; Glucose 76 mg/dL (65-105); Magnesium 1.7 mg/dL (1.6-2.3); Potassium 4.1 mmol/L (3.4-5.0); Sodium 142 mmol/L (137-145)
[2021-02-16 06:00] VITALS: BP 115/51; PULSE 85; RESP 21; TEMP 36.3; O2SAT 100
[2021-02-16] MEDS: PANTOPRAZOLE SODIUM IV 40 MG VIAL IV PUSH (08:43)
[2021-02-16 09:57] VITALS: O2SAT 98
[2021-02-16 11:05] VITALS: BMI 38.4
[2021-02-16 11:06] VITALS: BMI 38.4
--- NOTE | 2021-02-16 13:40 | PM.PNGS ---
Progress Note: A&P Assessment and Plan (1) Small bowel obstruction: Onset Date: ~02/13/21 Code(s): K56.609 - Unspecified intestinal obstruction, unspecified as to partial versus complete obstruction Status: Acute Assessment and Plan: Appears to resume be resolving by clinical exam and x-ray today. Will advance patient's diet to clears today and remove NG tube. If doing well will advance to full liquids in the morning and may be able to be discharged from here if has not already been transferred to [facility]. (2) Morbid obesity with BMI of 40.0-44.9, adult: Code(s): E66.01 - Morbid (severe) obesity due to excess calories; Z68.41 - Body mass index [BMI]40.0-44.9, adult Status: Acute (3) Bacteriuria with pyuria: Onset Date: ~02/15/21 Code(s): R82.71 - Bacteriuria; R82.81 - Pyuria Status: Acute Assessment and Plan: See urinalysis and medicine notes. Additional Plan Will remove NG tube and allow patient clears. If she continues to do well consider increasing to full liquids for breakfast tomorrow and may be able to be discharged following that if doing well. She could then follow up with her usual physicians at [facility] as an outpatient. Time Spent With Patient Time with patient: 15 - 25 minutes Subjective Subjective Date/Time Seen: 02/16/21 13:40 Patient reports: no new complaints, feels better and bowel movement (Several loose stools overnight) Interval history: Patient has had no further nausea or vomiting. She has tolerated her NG okay but would be happy to have it out. I checked this morning and her x-ray study showed decrease dilated loops of small bowel and since she has had bowel movements we clamped her NG at about 10:00 a.m. the nurse were removed today at 1:00 p.m. if she is still doing well. Right now she sees says she is tolerating liquids well. Review of Systems Constitutional: Constitutional: Reports no additional constitutional complaints ENT: Reports other (Mucous Membranes moist.) Cardiovascular: Cardiovascular: Denies dyspnea Respiratory: Respiratory: Denies pain on inspiration and Denies dyspnea Gastrointestinal: Gastrointestinal: Denies abdominal pain, Denies constipation, Reports loose stools and Denies nausea Musculoskeletal: Musculoskeletal: Reports other (No calf swelling or edema) Integumentary/Breasts: Skin/Breast: Reports system reviewed and no additional complaints, except as docu Exam Const: General: cooperative, no acute distress, alert and awake Orientation/consciousness: patient oriented x3 HENMT: Mouth: Yes moist mucous membranes Neck: Neck: normal visual inspection Chest: Chest palpation & inspection: normal inspection of the chest Resp: Effort & Inspection: normal respiratory effort Auscultation: clear to auscultation bilaterally Cardio: Jugular venous distension: no JVD Rate: regular rate Rhythm: regular rhythm GI: Inspection: obesity and scar (Near the umbilicus and several port scars) GI Palp: Yes Soft to palpation Auscultation: normal bowel sounds Rectal Exam: deferred Other: Patient seems to have a reducible hernia just above the umbilicus. This is nontender today. Neuro: General: patient oriented x3 and moves all extremities Speech: normal speech Extrem: General: normal exam except as noted Psych: Mental Status: mental status grossly normal Speech and movement: Normal speech and movement present Affect: normal affect Thought content: Yes Normal thought content present Objective Data Vital Signs Vital Signs: Vital Signs - 24 hr 02/15/21 15:45 02/15/21 16:55 02/15/21 20:00 Temperature 36.5 C Pulse Rate 91 91 Respiratory Rate 18 20 20 Blood Pressure 122/72 110/67 Pulse Oximetry 97 98 98 02/15/21 22:00 02/16/21 06:00 02/16/21 09:57 Temperature 36.2 C L 36.3 C L Pulse Rate 116 H 85 Respiratory Rate 21 H 21 H Blood Pressure 100/52 L 115/51 L Pulse Oximetry 100 100 98 Intake/Outp
[2021-02-16 14:00] VITALS: BP 101/87; PULSE 85; RESP 18; TEMP 35.7; O2SAT 100
--- NOTE | 2021-02-16 17:18 | PM.IMPN ---
Progress Note: A&P Assessment and Plan (1) Small bowel obstruction: Onset Date: ~02/13/21 Code(s): K56.609 - Unspecified intestinal obstruction, unspecified as to partial versus complete obstruction Status: Acute Assessment and Plan: Transition point at the ventral abdominal wall hernia without evidence of strangulation. Continue NG tube to suction, she reports symptomatic improvement already. The patient has been accepted to [facility] given her complex history however no bed is yet available and thus she is being admitted for observation for closer monitoring. Dr. Dowd (general surgery) has already seen the the patient and his recommendations are appreciated. 02/16/2021 Appears to be improving Anticipate surgery to clamp tube and try a CLD diet Encourage mobilization Transfer to [facility] pending bed (2) Acute kidney injury superimposed on chronic kidney disease: Onset Date: Unknown Code(s): N17.9 - Acute kidney failure, unspecified; N18.9 - Chronic kidney disease, unspecified Status: Acute Assessment and Plan: Presumably secondary to dehydration from vomiting and poor oral intake. Urostomy seems to be draining fine however she reports a pretty significant decline in urine output. Continue cautious IV fluid rehydration and close monitoring of output. 02/16/2021 Renal function improving slowly (3) Chronic anemia: Code(s): D64.9 - Anemia, unspecified Status: Acute Assessment and Plan: Hemoglobin has dropped overnight though I think she was probably hemoconcentrated due to dehydration. Baseline hemoglobin looks to be around 9.0. Continue to monitor. 02/16/2021 Hemoglobin now stable (4) Abnormal urinalysis: Code(s): R82.90 - Unspecified abnormal findings in urine Status: Acute Assessment and Plan: She apparently has a stent with her urinary diversion and is probably not uncommon for her to have bacteria in her urine however because she has been feeling poorly and in light of her elevated white blood cell count, she has been started on empiric antibiotics, pending urine culture. Subjective Date/time seen: 02/16/21 17:18 patient reports improvement in her abdominal pain. She is now passing gas and having small bowel movements. She remains NPO pending surgical re-evaluation today for her SBO. Although patient seems to be improving she has not had a p.o. challenge test at this time. I have requested that we continue with the [facility] transfer until she is safely beyond Resolution of her small-bowel obstruction as to not impede her care. Exam Narrative: Exam Narrative: General: Mildly ill-appearing female sitting up in bed in no acute distress. Weight: 119 kg. BMI: 42.3. HEENT: Slightly hard of hearing. EOMI. Sclerae anicteric. NG tube in the right naris draining greenish, opaque fluid. Dry mucous membranes. Poor dentition with multiple missing teeth. Oropharynx clear. Neck: Supple. Respiratory: Lungs are clear to auscultation bilaterally. Cardiovascular: Regular rate and rhythm with S1-S2. Gastrointestinal: Abdomen is soft, morbidly obese, and nondistended with normoactive bowel sounds. She is somewhat tender to palpation around a supraumbilical ventral hernia. Urostomy with a small amount of urine. Skin: Warm and dry. Generalized pallor. Extremities: No cyanosis or clubbing. 1+ yelena ankle edema bilaterally. Radial and pedal pulses intact. Neurological: Alert. Cranial nerves 2-12 are grossly intact. No gross focal deficits to casual conversation. Psychiatric: Pleasant and cooperative. Appropriate mood and affect. Objective Data Vital Signs Vital Signs: Vital Signs - 24 hr 02/15/21 20:00 02/15/21 22:00 02/16/21 06:00 Temperature 97.1 F L 97.4 F L Pulse Rate 91 116 H 85 Respiratory Rate 20 21 H 21 H Blood Pressure 100/52 L 115/51 L Pulse Oximetry 98 100 100 02/16/21 09:57 02/16/21 14:00 Temperat
[2021-02-16 20:00] VITALS: PULSE 95; RESP 16; O2SAT 98
[2021-02-16 20:49] VITALS: BP 113/66; PULSE 95; RESP 16; TEMP 36.6; O2SAT 98
--- NOTE | 2021-02-16 22:51 | PC.NURSE ---
Unable to obtain IV access, Dr. Dr. Dowd called and Dr. Vasquez called and new orders received.
[2021-02-16] MEDS: AMOXICILLIN/CLAVULANATE K 500-125 MG TAB 1 TABLET PO (23:13)
[2021-02-17 06:00] VITALS: BP 121/57; PULSE 84; RESP 16; TEMP 36.1; O2SAT 98
[2021-02-17] MEDS: AMOXICILLIN/CLAVULANATE K 500-125 MG TAB 1 TABLET PO (08:00)
--- NOTE | 2021-02-17 09:52 | PM.PNGS ---
Progress Note: A&P Assessment and Plan (1) Small bowel obstruction: Onset Date: ~02/13/21 Code(s): K56.609 - Unspecified intestinal obstruction, unspecified as to partial versus complete obstruction Status: Acute Assessment and Plan: Appears to resume be resolving by clinical exam and x-ray today. Will advance patient's diet to ful then low fiber today. NG came out yesterday at 1:00 p.m. I believe that if she does well with lunch she does not need to transfer to [facility] appears there bowel obstruction has resolved and she could go home. She should however follow-up with 1 the general surgeons at [facility] for possible hernia repair in the periumbilical region. Please send CT scan this colon with her and have her take it to her appointment with her urologist who may be able to help facilitate the referral on to the surgeon who is best that repairing this type of hernia. (2) Morbid obesity with BMI of 40.0-44.9, adult: Code(s): E66.01 - Morbid (severe) obesity due to excess calories; Z68.41 - Body mass index [BMI]40.0-44.9, adult Status: Acute Assessment and Plan: Patient's BMI is too high. She would benefit from losing weight prior to hernia repair of possible therefore courage her to follow low-fat diet along with low-fiber for a week and then talk to the surgeon over there about that. (3) Bacteriuria with pyuria: Onset Date: ~02/15/21 Code(s): R82.71 - Bacteriuria; R82.81 - Pyuria Status: Acute Assessment and Plan: See urinalysis and medicine notes. Additional Plan If she continues to do well consider she may be able to be discharged. ( Discussed with Luis Miguel at the wound clinic and they will try to measure her and issue her one that has a hole cut in it for her ileal conduit to use at home ). She could then follow up with her usual physicians at [facility] as an outpatient and possibly get a consult there with a specialist hernia surgeon. Subjective Subjective Date/Time Seen: 02/17/21 09:52 Interval history: Patient is sitting up in the chair dressed when I entered the room today. She states that if he she feels 100% better than when she came to the emergency room several days ago. She has had several bowel movements overnight and there begin been getting to solidify. She is tolerating a full liquid diet as of this morning. She has been up walking with the assistance of a walker. She does occasionally use this at home. I did discuss with her possible use of an abdominal binder and she is interested. ( Discussed with Luis Miguel at the wound clinic and they will try to measure her and issue her one with a whole cut it in it for her ileal conduit to use at home). Review of Systems Constitutional: Constitutional: Reports as per HPI, Reports no additional constitutional complaints and Denies headache(s) Eyes: Eyes: Denies loss of vision and Denies eye pain ENT: Reports Normal hearing present, Denies change in voice, Denies dizziness, Denies headache(s) and Reports other (Mucous Membranes moist.) Cardiovascular: Cardiovascular: Denies chest pain and Denies dyspnea Respiratory: Respiratory: Denies pain on inspiration, Denies dyspnea and Denies wheezing Gastrointestinal: Gastrointestinal: Denies abdominal pain, Denies constipation, Reports loose stools and Denies nausea Comments: History of previous periumbilical hernia repair with mesh 2010. Genitourinary: Comments: no new problems with ileal conduit ostomy. Musculoskeletal: Musculoskeletal: Denies back pain, Denies arthralgias and Reports other (No calf swelling or edema) Integumentary/Breasts: Skin/Breast: Reports system reviewed and no additional complaints, except as docu Neurologic: Reports Normal hearing present, Denies dizziness, Denies headache(s), Denies loss of vision and Denies memory loss Psychiatric: Psychiatric: Denies memory loss and Denies panic attacks Endocrine: Endocrine: Reports no additional endo
--- NOTE | 2021-02-17 11:15 | PCNFU ---
Nutrition Follow-Up Complete: Inadequate Oral Intake as related to bowel obstruction as evidenced by NGT/Clear liquids. goal: Meet estimated nutritional needs Progressing towards goal. We will continue current goal. Pt current nutrition is Low fiber diet. Last recorded weight is 121.1 kg. Last weight reported on 02/14-108 kg. Bed scale is inconsistent with weight reported. Bowel Motility:+BM reported 02/17 Labs Reviewed:Cr 3.9,BUN 44,Hct 28.6,Hgb 9.0 Meds Noted:Augmentin Additional Notes: Patient seen today for nutritional follow up. Patient is tolerating diet. Discussed low fiber diet with patient today. Patient instruction attached. NO further nutritional interventions needed at this time. Monitoring:Will monitor every 7 days.
--- NOTE | 2021-02-17 13:49 | PM.DS ---
DS: Admitting Diagnosis Admitting Diagnosis Admitting Diagnosis: [facility] Possible UTI chronic Right lower extremity paresthesias DS: Discharge Diagnosis Discharge Diagnosis (1) Morbid obesity with BMI of 40.0-44.9, adult: Code(s): E66.01 - Morbid (severe) obesity due to excess calories; Z68.41 - Body mass index [BMI]40.0-44.9, adult Status: Acute (2) Small bowel obstruction: Onset Date: ~02/13/21 Code(s): K56.609 - Unspecified intestinal obstruction, unspecified as to partial versus complete obstruction Status: Acute (3) Acute kidney injury superimposed on chronic kidney disease: Onset Date: Unknown Code(s): N17.9 - Acute kidney failure, unspecified; N18.9 - Chronic kidney disease, unspecified Status: Acute (4) Urinary tract infection: Qualifiers: Hematuria presence: without hematuria Urinary tract infection type: acute cystitis Qualified Code(s): N30.00 - Acute cystitis without hematuria Code(s): N39.0 - Urinary tract infection, site not specified Status: Acute Assessment and Plan: UTI ruled out urinalysis showed mixed culture likely contaminant, as patient remained asymptomatic without signs of infection; she was discharged without antibiotics (5) Numbness of right lower extremity: Code(s): R20.0 - Anesthesia of skin Status: Acute DS: Summary Hospital Course Reason for hospitalization: Nausea vomiting Hospital Course: 55-year-old female with history of cervical cancer status post chemoradiation, chronic kidney disease, history of kidney stones status post nephrolithotomy, 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 She reports that the lump in my stomach? has gotten a bit bigger and more tender over the last 2 days with associated intractable nausea and vomiting. Patient was found to have small-bowel obstruction on imaging and her admission was recommended for further management. Patient was made NPO, NGT was inserted and placed LIS, surgery was consulted, pain was controlled with IV medications and she was monitored on the surgical head. She responded very well to conservative therapy and normal bowel function resumed. NGT was discontinued patient was placed on clear liquid diet and advanced as tolerated. At the time of her discharge she was ambulating, tolerating p.o., having bowel movements with positive flatus. She was advised to follow-up with Dr. Shah for possible herniorrhaphy in the future. Status at Discharge Functional status at discharge: independent ambulation Overall status at discharge: patient is back to baseline Time Spent with Patient Time attestation: Total time spent providing and/or coordinating discharge services: Time spent: Less than 30 minutes Exam Const: General: cooperative, healthy appearing, comfortable, no acute distress, well developed, alert and awake; No confusion Nutritional Appearance: well nourished Orientation/consciousness: oriented to person, oriented to place, oriented to time, patient oriented x3 and No confusion Limitations: no limitations HENMT: Head: normal to inspection, normocephalic and atraumatic Ears: hearing grossly normal bilaterally, TM normal on the right and TM normal on the left General nose exam: Normal external nose present, Normal nares present and No nasal discharge present Face and sinus: normal facial exam Mouth: Yes Normal oral and palatal mucosa present, Yes lip normal, Yes tongue normal, Yes oropharynx normal and Yes moist mucous membranes Throat: posterior oropharynx normal, tonsils normal and uvula midline Other: Poor dentition Eyes: General: appearance normal, both eyes and all related structures EOM: EOMs intact bilaterally Neck: Neck:
[2021-02-17 14:00] VITALS: BP 131/65; PULSE 94; RESP 20; TEMP 37.1; O2SAT 100
--- NOTE | 2021-02-17 15:17 | PCWOUND ---
WOCN NOTE received consult from Dr. Joseph Dowd to fit patient for an abdominal binder with ostomy outlet due to umbilical hernia. Binder fitted to patient. Patient states that it felt good. While measuring patient for the binder, it is noted that her urostomy bag was leaking. Patient states that she has changed the bag 3 times already today because it won't stop leaking. Patient states that she has had her urostomy now for 2 years and was never received formal training from an ostomy nurse on how to take care of her stoma. Bag was removed, stoma is completely retracted into the abdomen, Patients states she has never had a budded stoma. There is a stent in place, patient states she used to have nephrostomy tubes, but they were not working right so her urologist from [facility] put this in place, she is unsure when she is supposed to have it removed, she's waiting for her surgeon to call her back. Educated patient on the proper way to clean her skin with warm water only as she was using rubbing alcohol. Showed patient how to cut her back properly. Due to patient obesity and the retracted stoma, she would benefit more from a 2 piece convex urostomy appliance. [facility] does not have convex urostomy bags, so I applied stoma paste around the circumference of her stoma and then applied wafer. Showed patient how to apply the bag to the wafer. Patient to also wear ostomy belt to help push her stoma out as much as possible. Patient verbalized understanding of care. Abdominal binder placed. Paperwork faxed to [employer] program to help patient get set up with [employer] for supplies and also to reach out to patient for any help that is needed. Patient was also given educational folder about urostomy care and was given the phone number for the wound/ostomy clinic and told to contact us if needed. Patient can have Urologist send referral to the outpatient clinic for ostomy care if she needs it in the future. Patient sent home with supplies in room to help until she can receive supplies [employer].
== END 2021-02-17 16:00 | disposition home or self-care (01) | DRG 389 ==
LOC: ANHED 23:37 → ANH2MED 02-15 16:32
PROVIDERS: Emergency Medicine; Physician Assistant; Admitting Provider Internal Medicine; Emergency Provider Emergency Medicine; Visit Provider Hospitalist
DX: K56.609 Unspecified intestinal obstruction, unspecified as to partial versus complete obstruction (principal); N17.9 Acute kidney failure, unspecified; Z68.41 Body mass index [BMI] 40.0-44.9, adult; E66.01 Morbid (severe) obesity due to excess calories; D64.9 Anemia, unspecified; N18.9 Chronic kidney disease, unspecified; R82.71 Bacteriuria; R82.81 Pyuria; R20.0 Anesthesia of skin; Z79.899 Other long term (current) drug therapy; Z85.41 Personal history of malignant neoplasm of cervix uteri; Z86.73 Personal history of transient ischemic attack (TIA), and cerebral infarction without residual deficits; Z90.6 Acquired absence of other parts of urinary tract; Z92.21 Personal history of antineoplastic chemotherapy; Z92.3 Personal history of irradiation; Z93.6 Other artificial openings of urinary tract status
CPT/HCPCS: 36415; 74019; 74176; 80048; 80053; 81001; 83605; 83690; 83735; 85025; 85027; 87040; 87086; 87088; 99285; A9270; C9113; G0379; J1170; J2060; J2405; J2543; J2550; J7030; J7120

== ENCOUNTER 2021-03-05 12:25 | Emergency (ER) | payer MEDICAID, SELFPAY ==
[2021-03-05] VITALS (11 sets, daily range): BP systolic 114–194; BP diastolic 68–98; PULSE 70–101; RESP 14–22; TEMP 36.6; O2SAT 94–100
--- NOTE | ~2021-03-05 | XR_ITS ---
XR abdomen NG/feed tube insert DATE: 03/05/2021 16:36 INDICATION: NG tube placement TECHNIQUE: Portable AP view on 03/05/2021 at 1637 hours COMPARISON: None FINDINGS: NG tube is present overlying right upper quadrant, the distal tip likely in the proximal du odenum. Elevation right leaf of diaphragm. Status post cholecystectomy. Gas distended small bowel segments overlying the upper abdomen, consistent with small bowel obstructi on IMPRESSION: NG tube in proximal duodenum Status post cholecystectomy Small bowel gaseous dilatation, consistent with small bowel obstruction Reviewed, dictated and finalized at [facility] Reviewed, dictated and finalized at [facility].
--- NOTE | ~2021-03-05 | CT_ITS ---
EXAMINATION: CT abdomen pelvis wo con DATE: 03/05/2021 14:21 INDICATION: Mid abdominal pain. Nausea and vomiting. TECHNIQUE: Computed tomography (CT) of the abdomen and pelvis was performed without intravenous contr ast. Automated exposure control and iterative reconstruction technique were employed. Exam dose: 154 6.69 mGy-cm total exam DLP. COMPARISON: 02/16/2021 obstructive series 02/14/[address] abdomen pelvis FINDINGS: There is persistent posteromedial right basilar atelectasis/consolidation with air bronchog emanuel. Compared to 02/14/2021 there is resolution of proximal small bowel dilatation but there is persistent small bowel herniation through a ventral abdominal wall defect into a loculated large ventral abdomin al wall hernia. This closed loop obstruction of the small bowel within the hernia, the small bowel wi thin the hernia measuring up to 3.2 mm diameter, distended with fluid, with decompression of the smal l bowel distal to the hernia. Status post cystectomy and ileal diversion. There is a catheter extending from the ileostomy into the right renal collecting system. There is mild left hydroureteronephrosis. Heart size is normal. Coronary calcification. No pericardial or pleural effusion. Status post cholecystectomy. The liver, spleen, pancreas, and adrenal glands are unremarkable. Normal caliber of the abdominal aorta. No intraperitoneal or retroperitoneal or pelvic mass lesion or adenopathy or ascites. Diverticulosis of the left colon; no CT evidence of diverticulitis. IMPRESSION: Closed loop obstruction of small bowel within the large ventral abdominal wall loculated hernia Status post cystectomy and ileal diversion; right urinary stent extending from ileostomy into the rig ht renal collecting system Persistent posteromedial right lower lobe atelectasis/consolidation Mild left hydroureteronephrosis Status post cholecystectomy Diverticulosis of the left colon; no CT evidence of diverticulitis Reviewed, dictated and finalized at [facility] Reviewed, dictated and finalized at [facility]. IMPRESSION: Closed loop obstruction of small bowel within the large ventral ab dominal wall loculated hernia Status post cystectomy and ileal diversion; right urinary stent extending from ileostomy into the right renal collecting system Persistent posteromedial right lower lobe atelectasis/consolidation Mild left hydroureteronephrosis Status post cholecystectomy Diverticulosis of the left colon; no CT evidence of diverticulitis
[2021-03-05 12:42] LABS: Basophils Absolute Auto 0.1 K/mm3 (0.0-0.1); Basophils Percent Auto 0.4 % (0.2-1.2); Eosinophils Absolute Auto 0.1 K/mm3 (0-0.3); Eosinophils Percent Auto 0.5 % (0-4.4); Hematocrit 35.6 % (37.0-47.0); Hemoglobin 10.9 g/dL (12.0-15.0); Immature Granulocyte Absolute 0.08 K/mm3 (0.00-0.031); Immature Granulocyte Percent A 0.6 % (0-0.5); Lymphocytes Absolute Auto 1.28 K/mm3 (0.9-3.2); Lymphocytes Percent Auto 9.2 % (18.3-44.2); Mean Corpuscular HGB Conc 30.6 g/dl (32-36); Mean Corpuscular Hemoglobin 27.4 pg (26-34); Mean Corpuscular Volume 89.4 fl (80-100); Mean Platelet Volume 9.7 fl (7.4-10.4); Monocytes Absolute Auto 0.4 K/mm3 (0.1-0.6); Monocytes Percent Auto 2.6 % (2.6-8.5); Neutrophils Percent Auto 86.7 % (45.5-73.1); Platelet Count Result 295 k/mm3 (150-375); Red Blood Count 3.98 M/mm3 (4.2-5.4); Red Cell Distribution Width 16.3 % (11.5-14.5); White Blood Count 13.9 K/mm3 (4.5-10.0)
[2021-03-05 12:52] LABS: Add Urine Microscopic? YES; Appearance Urine Cloudy (Clear); Bacteria Urine 2+ /hpf; Bilirubin Urine Negative (Negative); Blood Urine 1+ (Negative); Budding Yeast Urine Present /hpf; Color Urine Yellow (Yellow); Glucose Urine UA Negative (Negative); Ketones Urine Negative (Negative); Leukocyte Esterase Ur 3+ LEU/UL (Negative); Mucus Urine Rare /lpf; Nitrate Urine Negative (Negative); Protein Urine 1+ mg/dL (Negative); Squamous Epithelial Cell Urine Rare /hpf (Few); Urobilinogen Urine Negative mg/dL (<2.0); WBC Clumps Urine Present /HPF; WBC Urine 51-75 /hpf
[2021-03-05 12:55] LABS: Alanine Aminotransferase 13 U/L (4-35); Albumin Level 4.5 g/dL (3.5-5.1); Alkaline Phosphatase 99 U/L (38-126); Anion Gap 15 mmol/L (8-16); Aspartate Amino Transferase 21 U/L (14-36); Bilirubin,Total 0.4 mg/dL (0.2-1.3); Blood Urea Nitrogen 33 mg/dL (7-17); Carbon Dioxide 15 mmol/L (22-30); Chloride 112 mmol/L (98-107); Estimated CRCL calculation 24 ml/min; Estimated Glomerular Filt Rate 16; Glucose 141 mg/dL (65-105); Lipase 117 U/L (23-300); Potassium 4.9 mmol/L (3.4-5.0); Sodium 142 mmol/L (137-145)
[2021-03-05] MEDS: ONDANSETRON INJ 4 MG/2 ML VIAL IV PUSH (14:28)
--- NOTE | 2021-03-05 14:37 | ED.ABDPAIN ---
HPI - Abdominal Pain General Chief Complaint: Abdominal Pain Stated Complaint: abd pain Time Seen by Provider: 03/05/21 12:38 Source: patient Mode of arrival: EMS Limitations: no limitations History of Present Illness HPI narrative: 55-year-old female Complex abdominal surgical history including several operations for cervical cancer Recently was hospitalized here with what sounds like was a small bowel obstruction that resolved about 2 weeks ago She was supposed to follow-up with her surgeon at [place] whose name she does not recall to see about possibly having a periumbilical hernia fixed but has not and prefers not to Now she has a 1 day history of pain in that area and a tender mass She is continuing to have bowel movements, and has done what she describes as spitting up more than actual vomiting No fever, no cough Related Data Allergies Allergy/AdvReac Type Severity Reaction Status Date / Time No Known Allergies Allergy Verified 03/05/21 12:27 Review of Systems Review of Systems: All systems reviewed & are unremarkable except as noted in HPI and below Constitutional: Constitutional: Reports no additional constitutional complaints, Denies chills, Denies fever(s) and Denies headache(s) Eyes: Eyes: Reports no additional eye complaints and Denies change in vision ENT: Denies headache(s) and Denies sore throat Cardiovascular: Cardiovascular: Denies chest pain and Denies dyspnea Respiratory: Respiratory: Denies cough and Denies dyspnea Gastrointestinal: Gastrointestinal: Reports abdominal pain, Denies diarrhea, Reports nausea and Reports vomiting Genitourinary: Genitourinary: Denies urinary frequency and Reports dysuria Musculoskeletal: Musculoskeletal: Denies deformity, Denies arthralgias, Denies joint swelling and Denies numbness Integumentary/Breasts: Skin/Breast: Denies rash and Denies wounds Neurologic: Denies headache(s), Denies focal weakness and Denies numbness Psychiatric: Psychiatric: Reports no additional psychiatric complaints Endocrine: Endocrine: Reports no additional endocrine complaints Hematologic/Lymphatic: Hematologic/Lymphatic: Reports no additional hematologic/lymphatic complaints Allergic/Immunologic: Allergic/Immunologic: Reports no additional allergic/immunologic complaints [facility] Past Medical History Medical History (Updated 03/05/21 @ 19:26 by Jesus Olson MD) Abnormal echocardiogram Echocardiogram in July 2020 showed evidence of a small ASD versus PFO. Cerebrovascular accident Brain MRI on 08/16/2020 showed punctate old cerebellar basal ganglia lacunar infarctions. Cervical cancer (~2011) Status post chemotherapy and radiation. Considered to be cured. Chronic anemia Chronic kidney disease Kidney stones Surgical History Surgical History History of cholecystectomy History of nephrolithotomy with removal of calculi (~07/2020) History of total cystectomy (~02/2020) For treatment of bladder fistula. History of umbilical hernia repair History of urinary diversion procedure History of urostomy Family History Family History Mother Cerebrovascular accident Father Heart disease Social History Social History Social History: Surrogate decision maker: Ventura Joy (son) or Gavin Escobar (brother). Code status: Full code. Smoking status: Never smoker Second hand tobacco smoke exposure: No Alcohol intake: never Substance use: never Substance use type: does not use Additional living arrangements comments: Lives in [place] with her son and their dog Additional occupation/education comments: Currently unemployed. Worked for 20+ years at [employer]. Gender identity (if verbalized by the patient): Female Spiritual care concerns: No Ex
[2021-03-05] MEDS: MORPHINE SULFATE (*CRX) 4 MG/ML INJ 6 MG IV PUSH (15:39)
--- NOTE | 2021-03-05 16:08 | PC.NURSE ---
Attempted to place NG tube in right and left nare unsuccessful. This nurse attempted x 2 and another ED nurse attempted x 2. Dr. Olson and charge nurse aware of difficulty.
[2021-03-05] MEDS: LACTATED RINGERS 1,000 ML 999 ML IV CONT ×2 (16:59→19:31)
[2021-03-05] MEDS: MORPHINE SULFATE (*CRX) 4 MG/ML INJ IV PUSH ×2 (16:59→19:52)
[2021-03-05 17:40] LABS: Lactic Acid Reflex 2.4 mmol/L (0.7-2.1)
--- NOTE | 2021-03-05 19:18 | PC.NURSE ---
called [facility] to request transport. decline - other truck in [facility] called [facility] to request transport. decline. - busy called [facility] to request transport. Trucks busy for atleast 2+ hours.
--- NOTE | 2021-03-05 19:34 | PC.NURSE ---
Ng tube to low intermittant wall suction. Patient asking for additional pain meds prior to transfer-updated her that transport was scheduled for around 2100. Spoke with Dr Olson and made him aware of same-he stated make her go by lights/paulina to [place] [facility] , racing secretary and handicapper/charge entry specialist madwe aware of change.
--- NOTE | 2021-03-05 19:35 | PC.NURSE ---
per EDP call [facility] lights and sirens to take patient to [place].
--- NOTE | 2021-03-05 19:43 | PC.NURSE ---
[facility] here
--- NOTE | 2021-03-05 19:46 | PC.NURSE ---
Report to receiving ambulance crew
[2021-03-05 20:29] LABS: Reflex Lactic Acid Yes or No Add Lactic
== END 2021-03-08 05:15 | disposition short-term general hospital (02) ==
PROVIDERS: Family Medicine; Emergency Provider Emergency Medicine
DX: K42.0 Umbilical hernia with obstruction, without gangrene (principal); N39.0 Urinary tract infection, site not specified; K56.609 Unspecified intestinal obstruction, unspecified as to partial versus complete obstruction; D64.9 Anemia, unspecified; N18.9 Chronic kidney disease, unspecified; Z87.442 Personal history of urinary calculi; K57.90 Diverticulosis of intestine, part unspecified, without perforation or abscess without bleeding; Z92.21 Personal history of antineoplastic chemotherapy; Z92.3 Personal history of irradiation; Z86.73 Personal history of transient ischemic attack (TIA), and cerebral infarction without residual deficits; Z85.41 Personal history of malignant neoplasm of cervix uteri
CPT/HCPCS: 36415; 74176; 80053; 81001; 81025; 83605; 83690; 85025; 87077; 87086; 87088; 87186; 96361; 96365; 96375; 96376; 99285; J0696; J2270; J2405; J7120

== ENCOUNTER 2021-04-20 11:15 | Outpatient (CLI) | payer MEDICAID, SELFPAY | END 2021-04-20 11:16 | disposition home or self-care (01) | DX: R31.0 Gross hematuria (principal) | CPT/HCPCS: 87077; 87086; 87088; 87186 ==

== ENCOUNTER 2021-04-22 06:41 | Emergency (ER) | payer MEDICAID, SELFPAY ==
--- NOTE | ~2021-04-22 | CT_ITS ---
EXAMINATION: CT abdomen pelvis wo con DATE: 04/22/2021 07:41 INDICATION: Abdominal pain, nausea and vomiting one month post hernia repair. TECHNIQUE: Computed tomography (CT) of the abdomen and pelvis was performed without intravenous contr ast. Automated exposure control and iterative reconstruction technique were employed. The dose-length product was 1457.01 mGy-cm. COMPARISON: 03/05/2021 FINDINGS: Chronic elevation of the right hemidiaphragm with thick band of discoid atelectasis at the medial rig ht lower lobe. There are band of discoid atelectasis in the left lower lobe. No pleural effusion. Hea rt size is normal. Small pericardial effusion. Atherosclerotic coronary artery catheter location. Cho lecystectomy clips at the gallbladder fossa. Liver, spleen, pancreas and bilateral adrenal glands are normal. Scattered cortical atrophy at the left kidney. 12 mm left renal cyst. There tiny <2 mm paren chymal calcifications in both kidneys which could represent nonobstructing renal stones or vascular c alcifications. Postoperative changes of prior cystectomy and right lower quadrant ileal conduit forma tion. Normal appendix. Fluid throughout the small bowel and colon consistent with diarrhea. Small reg ion of mild stranding in the small bowel mesentery in the right upper quadrant. No abnormal bowel wal l thickening or obstruction. Uterus and bilateral adnexa are unremarkable. No free intraperitoneal ga s or fluid. Postoperative bed likely relatively recent interval ventral hernia repair with some stran ding and a 1.9 x 1.1 x 1.6 cm fluid collection along the midline surgical wound. No pathologically en larged abdominal or pelvic lymphadenopathy. Mild lumbar dextrocurvature with moderate thoracolumbar s pondylosis. IMPRESSION: 1. Fluid in the colon consistent with diarrhea. Correlate clinically for gastroenteritis. 2. Changes of relatively recent ventral hernia repair with some stranding along with a tiny 1.9 x 1.1 x 1.6 cm fluid collection in the subcutaneous tissues along a midline abdominal surgical scar which could represent a small hematoma/seroma versus abscess in the appropriate clinical setting. 3. Small region of mild nonspecific stranding in the small bowel mesentery in the right upper quadran t along a couple loops of normal caliber small bowel most likely related to recent surgery. 4. Small pericardial effusion. 5. Postoperative change of prior cholecystectomy and cystectomy with right lower quadrant ileal condu it. Reviewed, dictated and finalized at [facility]. IMPRESSION: 1. Fluid in the colon consistent with diarrhea. Correlate clinically for gastro enteritis. 2. Changes of relatively recent ventral hernia repair with some stranding along with a tiny 1.9 x 1.1 x 1.6 cm fluid collection in the subcutaneous tissues al tunde a midline abdominal surgical scar which could represent a small hematoma/se rochelle versus abscess in the appropriate clinical setting. 3. Small region of mild nonspecific stranding in the small bowel mesentery in t he right upper quadrant along a couple loops of normal caliber small bowel most likely related to recent surgery. 4. Small pericardial effusion. 5. Postoperative change of prior cholecystectomy and cystectomy with right lowe r quadrant ileal conduit.
--- NOTE | ~2021-04-22 | XR_ITS ---
EXAMINATION: XR chest 2V DATE: 04/22/2021 07:23 INDICATION: Mild chest pain with nausea TECHNIQUE: frontal and lateral views of the chest were obtained. COMPARISON: Chest radiograph dated 09/01/2020 FINDINGS: Chronic elevation of the left hemidiaphragm. No focal airspace opacities, pulmonary edema, pleural ef fusion or pneumothorax. The cardiomediastinal silhouette is normal. Callus formation about the mgmt specialist ior left ninth rib fracture. Cholecystectomy clips in the right upper quadrant. IMPRESSION: 1. Chronic elevation of the right hemidiaphragm. No acute cardiopulmonary disease. Reviewed, dictated and finalized at [facility]. IMPRESSION: 1. Chronic elevation of the right hemidiaphragm. No acute cardiopulmonary disea se.
--- NOTE | ~2021-04-22 | XR_ITS ---
EXAMINATION: XR sm bowel follow through DATE: 04/22/2021 12:41 INDICATION: Abdominal pain and vomiting one month post hernia repair TECHNIQUE: Water-soluble oral contrast was administered, and sequential radiographs of the abdomen we re obtained until oral contrast was noted to be in the proximal colon. Spot fluoroscopic images of th e small bowel were obtained. Fluoroscopy exposure time was 1.3 minutes. A total of 7 fluoroscopic spo t images and 7 overhead radiographs were obtained. COMPARISON: None. FINDINGS: Transit time from the stomach to proximal colon was approximately 2 hours. There is normal mucosal fo ld pattern throughout the small bowel. There is intermittent mild dilation of the jejunum in the left abdomen. Terminal ileum is normal. On real-time fluoroscopy there is focal tapering of a few loops o f small bowel centered in the right upper quadrant corresponding to the location of the stranding on the prior CT there is a similar focal decompression of the small bowel which on either side is gas or fluid filled but not frankly dilated. IMPRESSION: 1. Intermittent mild dilation of the jejunum in the left abdomen proximal to the site of focal taperi ng of a couple loops of small bowel in the right abdomen. Appearance suggests a likely intermittent/p artial small bowel obstruction potentially related to adhesions but without significant delay of cont rast which reaches the colon in 2 hours which is within normal limits. Reviewed, dictated and finalized at location A. IMPRESSION: 1. Intermittent mild dilation of the jejunum in the left abdomen proximal to th e site of focal tapering of a couple loops of small bowel in the right abdomen. Appearance suggests a likely intermittent/partial small bowel obstruction pote ntially related to adhesions but without significant delay of contrast which re aches the colon in 2 hours which is within normal limits.
[2021-04-22 06:43] VITALS: BP 92/65; PULSE 103; RESP 23; TEMP 36.8; O2SAT 100
--- NOTE | 2021-04-22 06:55 | ECG_ITS ---
Measurements Intervals [place] Rate: 94 P: 10 MT: 162 QRS: -3 QRSD: 89 T: 7 QT: 346 QTc: 434 Interpretive Statements SINUS RHYTHM BORDERLINE T WAVE ABNORMALITY- ANTEROLAT/INF LEADS BASELINE ARTIFACT- I, II, III, AVR, AVL, AVF, V1-V6 BORDERLINE ECG Electronically Signed On 04-22-2021 8:13:54 CDT by Oli Crooks D.O.
--- NOTE | 2021-04-22 07:09 | ED.CHESTPAIN ---
HPI - Chest Pain General Chief Complaint: Chest Pain Stated Complaint: CP/VOMITING Time Seen by Provider: 04/22/21 07:01 Source: RN notes reviewed History of Present Illness HPI narrative: Patient presents to emergency department from home for chest pain. Patient states that for the past 2 days she has been having lower midsternal chest pain the pain is described as a pressure in nature associated with a feeling of shortness of breath patient also states associate with nausea and vomiting and that every time she vomits the pain will resolve she states that she has been having nausea vomiting over the past 1 week she states she was having pain before arrival but vomited and the pain is now gone at this time patient states that she did have a history of bowel incarceration secondary to a hernia several months ago with surgery at [facility] she denies any fevers or chills or any other symptoms at this time Related Data Allergies Allergy/AdvReac Type Severity Reaction Status Date / Time No Known Allergies Allergy Verified 04/22/21 06:52 Review of Systems Review of Systems: Gen.: Denies fevers or chills Eyes: Denies eye pain or visual change ENT: Denies congestion Respiratory: Reports shortness of breath CV: See HPI GI: Denies abdominal pain or diarrhea. Reports nausea vomiting denies burning, urgency, frequency or hematuria Musculoskeletal: Denies back pain or muscle pain Neuro: Denies numbness, tingling, weakness or focal weakness Skin: Denies rash Except as documented, all other systems reviewed and negative [facility] Past Medical History Medical History Abnormal echocardiogram Echocardiogram in July 2020 showed evidence of a small ASD versus PFO. Cerebrovascular accident Brain MRI on 08/16/2020 showed punctate old cerebellar basal ganglia lacunar infarctions. Cervical cancer (~2011) Status post chemotherapy and radiation. Considered to be cured. Chronic anemia Chronic kidney disease Kidney stones Surgical History Surgical History History of cholecystectomy History of nephrolithotomy with removal of calculi (~07/2020) History of total cystectomy (~02/2020) For treatment of bladder fistula. History of umbilical hernia repair History of urinary diversion procedure History of urostomy Family History Family History Mother Cerebrovascular accident Father Heart disease Social History Social History Social History: Surrogate decision maker: Ventura Joy (son) or Gavni Escobar (brother). Code status: Full code. Smoking status: Never smoker Second hand tobacco smoke exposure: No Alcohol intake: never Substance use: never Substance use type: does not use Additional living arrangements comments: Lives in [place] with her son and their dog Additional occupation/education comments: Currently unemployed. Worked for 20+ years at [employer]. Gender identity (if verbalized by the patient): Female Spiritual care concerns: No Exam Narrative: APPEARANCE: No acute distress, nontoxic, resting in bed EYES: EOMI HEENT: Normocephalic, atraumatic, OMM RESPIRATORY: No respiratory distress Clear to auscultation bilaterally with no rhonchi wheezing or rales. CARDIOVASCULAR: Regular rate and rhythm without murmurs rubs or gallops. ABDOMINAL: Soft, nontender, nondistended, no rebound or guarding ileostomy in right lower quadrant draining yellow urine MUSCULOSKELETAl: Moves all extremities. No clubbing, cyanosis or edema. NEURO: Awake and alert. Following commands, speech normal, no focal deficits SKIN:: Warm, dry. No rashes lesions or abrasions PSYCHIATRIC: Normal affect/mood, Course Course Emergency Course: I called and discussed with Dr. Cortes
[2021-04-22 07:14] LABS: Basophils Percent Auto 0.3 % (0.2-1.2); Eosinophils Absolute Auto 0.2 K/mm3 (0-0.3); Eosinophils Percent Auto 1.5 % (0-4.4); Hemoglobin 12.1 g/dL (12.0-15.0); Immature Granulocyte Absolute 0.03 K/mm3 (0.00-0.031); Immature Granulocyte Percent A 0.3 % (0-0.5); Lymphocytes Absolute Auto 2.19 K/mm3 (0.9-3.2); Lymphocytes Percent Auto 22.3 % (18.3-44.2); Mean Corpuscular Hemoglobin 27.6 pg (26-34); Mean Platelet Volume 10.3 fl (7.4-10.4); Monocytes Absolute Auto 0.7 K/mm3 (0.1-0.6); Monocytes Percent Auto 7.4 % (2.6-8.5); Neutrophils Absolute Auto 6.7 K/mm3 (1.3-6.7); Neutrophils Percent Auto 68.2 % (45.5-73.1); Platelet Count Result 312 k/mm3 (150-375); Red Blood Count 4.38 M/mm3 (4.2-5.4); Red Cell Distribution Width 16.7 % (11.5-14.5); White Blood Count 9.8 K/mm3 (4.5-10.0)
[2021-04-22] MEDS: SODIUM CHLORIDE 0.9% IV 1,000 ML 999 ML IV CONT (07:20)
[2021-04-22 07:22] LABS: Partial Thromboplastin Time 25.4 SECONDS (22.3-36.8); Prothrombin Time 12.8 Seconds (11.1-14.7)
[2021-04-22 07:23] LABS: Anion Gap 14 mmol/L (8-16); Blood Urea Nitrogen 32 mg/dL (7-17); Calcium 9.6 mg/dL (8.4-10.2); Carbon Dioxide 13 mmol/L (22-30); Chloride 115 mmol/L (98-107); Estimated CRCL calculation 17 ml/min; Estimated Glomerular Filt Rate 11; Glucose 128 mg/dL (65-110); Potassium 3.4 mmol/L (3.4-5.0); Sodium 142 mmol/L (137-145)
[2021-04-22 07:34] LABS: Troponin I < 0.012 ng/mL (0.000-0.034)
[2021-04-22 07:53] LABS: Alanine Aminotransferase 15 U/L (4-35); Alkaline Phosphatase 159 U/L (38-126); Aspartate Amino Transferase 26 U/L (14-36); Bilirubin,Total 0.5 mg/dL (0.2-1.3); Lipase 62 U/L (23-300)
[2021-04-22 09:00] VITALS: BP 121/78; PULSE 78; RESP 18; O2SAT 100
[2021-04-22 10:00] VITALS: BP 134/74; PULSE 81; RESP 18; O2SAT 98
[2021-04-22 10:40] LABS: Troponin I < 0.012 ng/mL (0.000-0.034)
[2021-04-22 13:00] VITALS: BP 126/74; PULSE 94; RESP 18; O2SAT 99
[2021-04-22 14:40] LABS: Troponin I < 0.012 ng/mL (0.000-0.034)
[2021-04-22 15:11] VITALS: BP 131/78; PULSE 98; RESP 17; O2SAT 100
== END 2021-04-22 15:38 | disposition home or self-care (01) ==
PROVIDERS: Emergency Medicine; Emergency Provider Emergency Medicine
DX: R07.2 Precordial pain (principal); R11.2 Nausea with vomiting, unspecified; Z86.73 Personal history of transient ischemic attack (TIA), and cerebral infarction without residual deficits; Z85.41 Personal history of malignant neoplasm of cervix uteri; D64.9 Anemia, unspecified; N18.9 Chronic kidney disease, unspecified; Z87.442 Personal history of urinary calculi; R94.31 Abnormal electrocardiogram [ECG] [EKG]; R93.3 Abnormal findings on diagnostic imaging of other parts of digestive tract
CPT/HCPCS: 36415; 71046; 74176; 74250; 80048; 80076; 83690; 84484; 85025; 85610; 85730; 93005; 96360; 96361; 99284; J7030

== ENCOUNTER 2021-05-03 04:12 | Emergency (ER) | payer MEDICAID, SELFPAY ==
[2021-05-03] VITALS (16 sets, daily range): BP systolic 87–144; BP diastolic 54–107; PULSE 85–115; RESP 13–23; TEMP 36.3–36.9; O2SAT 82–100
--- NOTE | ~2021-05-03 | XR_ITS ---
XR abdomen NG/feed tube insert INDICATION: Evaluate position. TECHNIQUE: Limited KUB perform for evaluating NG tube . COMPARISON: Comparison to multiple prior studies sequentially, with oldest reviewed study dated 06/12. FINDINGS: NG tube tip to the right of midline, possibly in the proximal duodenum. Visualized bowel ga s pattern is nonspecific.There are cholecystectomy clips. IMPRESSION: 1: NG tube tip possibly in the proximal duodenum.. Reviewed, dictated and finalized at location A.
--- NOTE | ~2021-05-03 | XR_ITS ---
XR abdomen NG/feed tube rechec INDICATION: Evaluate NG tube position. TECHNIQUE: Limited KUB perform for evaluating NG tube . COMPARISON: Comparison to multiple prior studies sequentially, with oldest reviewed study dated 03/05. FINDINGS: NG tube tip in the distal aspect of the stomach. Visualized bowel gas pattern is nonspecif ic.There are cholecystectomy clips. IMPRESSION: 1: NG tube tip in the distal aspect of the stomach. Reviewed, dictated and finalized at location A.
--- NOTE | ~2021-05-03 | CT_ITS ---
EXAMINATION: CT abdomen pelvis wo con DATE: 05/03/2021 06:17 INDICATION: Generalized abdominal pain, nausea and vomiting. TECHNIQUE: Computed tomography (CT) of the abdomen and pelvis was performed with 100 cc Omnipaque 350 intravenous contrast. The dose-length product was 1964.26 mGy-cm. Automated exposure control and ite rative reconstruction technique were employed. COMPARISON: CT dated 04/22/2021. FINDINGS: Right lower lobe atelectasis. Small pericardial effusion. Heart size normal. There is dilat ed small bowel with air-fluid levels throughout the abdomen. The colon is relatively decompressed. Th ere are surgical changes of prior cystectomy with right lower quadrant ileal conduit formation. No si gnificant interval change to surgical changes in the lower anterior abdominal wall allowing for diffe rences of technique. The kidneys are atrophic. No significant vascular abnormality. No lymphadenopath y. Status post cholecystectomy. The liver, spleen, pancreas, adrenal glands are unremarkable. No free air. Moderate thoracic lumbar spondylosis. Mild lumbar dextrocurvature. IMPRESSION: 1. Interval development of dilated fluid-filled small bowel with air-fluid levels which may represent a partial obstruction or ileus. 2: Stable irregular heterogeneous fatty infiltration of the lower anterior abdominal wall, likely pos toperative. No definitive abscess identified. 3: Postoperative changes, consistent with prior cholecystectomy and cystectomy. Reviewed, dictated and finalized at location A. IMPRESSION: 1. Interval development of dilated fluid-filled small bowel with air-fluid leve ls which may represent a partial obstruction or ileus. 2: Stable irregular heterogeneous fatty infiltration of the lower anterior abdo chris wall, likely postoperative. No definitive abscess identified. 3: Postoperative changes, consistent with prior cholecystectomy and cystectomy.
[2021-05-03] MEDS: SODIUM CHLORIDE 0.9% IV 1,000 ML 999 ML IV CONT ×2 (05:14→06:42)
[2021-05-03] MEDS: ONDANSETRON INJ 4 MG/2 ML VIAL IV PUSH (05:15)
[2021-05-03] MEDS: MORPHINE SULFATE (*CRX) 4 MG/ML INJ IV PUSH ×2 (05:16→12:09)
[2021-05-03 05:22] LABS: Basophils Absolute Auto 0.1 K/mm3 (0.0-0.1); Basophils Percent Auto 0.4 % (0.2-1.2); Eosinophils Absolute Auto 0.2 K/mm3 (0-0.3); Eosinophils Percent Auto 1.4 % (0-4.4); Hematocrit 37.9 % (37.0-47.0); Immature Granulocyte Percent A 0.7 % (0-0.5); Lymphocytes Absolute Auto 2.61 K/mm3 (0.9-3.2); Lymphocytes Percent Auto 19.2 % (18.3-44.2); Mean Corpuscular HGB Conc 31.7 g/dl (32-36); Mean Corpuscular Hemoglobin 27.3 pg (26-34); Mean Corpuscular Volume 86.3 fl (80-100); Mean Platelet Volume 10.6 fl (7.4-10.4); Monocytes Absolute Auto 1.3 K/mm3 (0.1-0.6); Monocytes Percent Auto 9.4 % (2.6-8.5); Neutrophils Absolute Auto 9.4 K/mm3 (1.3-6.7); Neutrophils Percent Auto 68.9 % (45.5-73.1); Platelet Count Result 245 k/mm3 (150-375); Red Blood Count 4.39 M/mm3 (4.2-5.4); Red Cell Distribution Width 16.1 % (11.5-14.5); White Blood Count 13.6 K/mm3 (4.5-10.0)
--- NOTE | 2021-05-03 05:24 | ED.GENADULT ---
HPI - General Adult General Chief complaint: Abdominal Pain Stated complaint: abd pain Time Seen by Provider: 05/03/21 04:33 History of Present Illness HPI narrative: Patient is a 55-year-old female that presents the emergency department with chief complaint of abdominal pain. Patient reports she has history of a hernia surgery and has had problems with possible incarcerated hernias in the past. Patient has been seen in our emergency department and has been admitted in our facility and also had her original surgeries at [facility]. Patient has not followed up with her surgeon at [facility]. Patient reports this evening she started having severe pain throughout her abdomen reports it feels similar to whenever she is had bowel obstructions in the past. Reports is not improved by anything or is it worsened by anything. Related Data Allergies Allergy/AdvReac Type Severity Reaction Status Date / Time No Known Allergies Allergy Verified 05/03/21 04:24 Review of Systems Review of Systems: A 10 system review of systems was completed on the patient and is negative except for what is stated in the HPI. Nursing and ancillary documentation was reviewed. [facility] Past Medical History Medical History Abnormal echocardiogram Echocardiogram in July 2020 showed evidence of a small ASD versus PFO. Cerebrovascular accident Brain MRI on 08/16/2020 showed punctate old cerebellar basal ganglia lacunar infarctions. Cervical cancer (~2011) Status post chemotherapy and radiation. Considered to be cured. Chronic anemia Chronic kidney disease Kidney stones Surgical History Surgical History History of cholecystectomy History of nephrolithotomy with removal of calculi (~07/2020) History of total cystectomy (~02/2020) For treatment of bladder fistula. History of umbilical hernia repair History of urinary diversion procedure History of urostomy Family History Family History Mother Cerebrovascular accident Father Heart disease Social History Social History Social History: Surrogate decision maker: Ventura Joy (son) or Gavin Escobar (brother). Code status: Full code. Smoking status: Never smoker Second hand tobacco smoke exposure: No Alcohol intake: never Substance use: never Substance use type: does not use Additional living arrangements comments: Lives in [place] with her son and their dog Additional occupation/education comments: Currently unemployed. Worked for 20+ years at [employer]. Gender identity (if verbalized by the patient): Female Spiritual care concerns: No Exam Narrative: GENERAL: Well-appearing, well-nourished, and in no acute distress. HEAD: Normocephalic, atraumatic. EYES: PERRLA and EOMI. ENT: Nares clear, no rhinorrhea or epistaxis. Mucous membranes moist. NECK: Supple. CHEST: Clear to auscultation. No respiratory distress. HEART: Regular rate and rhythm. No murmur heard. Normal peripheral pulses. ABDOMEN: Soft, mild tenderness patient, nondistended, normal active bowel sounds. EXTREMITIES: Normal range of motion. No edema. SKIN: Warm, dry, no rash. NEURO: No focal deficits. Alert and oriented x3. PSYCH: Normal mood and affect. Course Vital Signs Vital signs: Vital Signs Temperature 36.3 C L 05/03/21 04:12 Pulse Rate 107 H 05/03/21 04:12 Respiratory Rate 18 05/03/21 04:12 Blood Pressure 144/107 H 05/03/21 04:12 Pulse Oximetry 100 05/03/21 04:12 Temperature 36.3 C L 05/03/21 04:12 Pulse Rate 97 05/03/21 06:54 Respiratory Rate 13 05/03/21 06:54 Blood Pressure 87/57 L 05/03/21 06:54 Pulse Oximetry 100 05/03/21 06:54 Medical Decision Making Vital Signs Vital Signs: Vital S
[2021-05-03 05:29] LABS: Alanine Aminotransferase 14 U/L (4-35); Albumin Level 3.6 g/dL (3.5-5.1); Alkaline Phosphatase 116 U/L (38-126); Anion Gap 15 mmol/L (8-16); Aspartate Amino Transferase 21 U/L (14-36); Bilirubin,Total 0.4 mg/dL (0.2-1.3); Blood Urea Nitrogen 60 mg/dL (7-17); Calcium 7.5 mg/dL (8.4-10.2); Carbon Dioxide 18 mmol/L (22-30); Chloride 102 mmol/L (98-107); Estimated CRCL calculation 13 ml/min; Estimated Glomerular Filt Rate 8; Glucose 120 mg/dL (65-110); Lipase 107 U/L (23-300); Magnesium 0.7 mg/dL (1.6-2.3); Potassium 2.9 mmol/L (3.4-5.0); Sodium 135 mmol/L (137-145)
[2021-05-03 05:30] LABS: Lactic Acid Reflex 1.3 mmol/L (0.7-2.1)
[2021-05-03 05:48] LABS: Anisocytosis 2+ (NORMAL); Platelet Estimate Adequate (Adequate)
[2021-05-03 05:49] LABS: Atypical Lymphocytes Present
[2021-05-03 05:50] LABS: Add Urine Microscopic? YES; Appearance Urine Cloudy (Clear); Bilirubin Urine 1+ (Negative); Blood Urine Negative (Negative); Color Urine Amber (Yellow); Glucose Urine UA Negative (Negative); Ketones Urine Negative (Negative); Leukocyte Esterase Ur 3+ LEU/UL (Negative); Nitrate Urine Negative (Negative); Protein Urine 3+ mg/dL (Negative); RBC Urine 0-2 /hpf (0-2); Specific Grav Ur 1.016 (1.001-1.035); Squamous Epithelial Cell Urine Rare /hpf (Few); Urobilinogen Urine Negative mg/dL (<2.0); WBC Urine 0-3 /hpf
--- NOTE | 2021-05-03 06:07 | PC.NURSE ---
at approx 0530 while speaking with pt, pt suddenly became unable to answer questions and could not follow commands. pts eyes were open and was able to track finger and PERRLA. GEOVANY Meredith notified no orders were given. pt symptoms resolved and pt able to respond and follow commands approx 0540, GEOVANY Meredith notified.
--- NOTE | 2021-05-03 07:10 | PC.NURSE ---
Assumed care of pt. at this time. Report from NATHANIEL Harper
[2021-05-03] MEDS: MAGNESIUM SULF 2 GM/WATER 50ML 2 GM/50 ML BAG IVPB (07:30)
--- NOTE | 2021-05-03 07:40 | PC.NURSE ---
Pt. requesting ostomy be changed. contacted x ray technician to assist. states she will be down as soon as available.
--- NOTE | 2021-05-03 09:00 | PC.NURSE ---
spoke w/ Balbina from [facility] for pt. update. states no beds are available at this time. Balbina requesting RN ask for orders to tx. low potassium and a rapid covid-19 test. VORB for a Covid-19 test and no orders for Potassium due to new onset kidney failure.
[2021-05-03 10:14] LABS: EDCOVIDSCREEN Negative (Negative)
--- NOTE | 2021-05-03 11:04 | PC.NURSE ---
report to NATHANIEL Walker She assumed care of pt. at this time.
[2021-05-03 15:10] LABS: Anion Gap 13 mmol/L (8-16); Blood Urea Nitrogen 55 mg/dL (7-17); Calcium 7.1 mg/dL (8.4-10.2); Carbon Dioxide 17 mmol/L (22-30); Chloride 107 mmol/L (98-107); Estimated CRCL calculation 14 ml/min; Estimated Glomerular Filt Rate 8; Glucose 99 mg/dL (65-110); Sodium 137 mmol/L (137-145)
[2021-05-03] MEDS: HYDROmorphone HCL INJ (*CRX) 1 MG/ML SYR IV PUSH ×3 (15:15→22:28)
[2021-05-03] MEDS: SODIUM CHLORIDE 0.9% IV 1,000 ML 150 ML IV CONT (15:15)
--- NOTE | 2021-05-03 20:16 | PC.NURSE ---
[facility] called at 185 to request transport. ETA [phone] called [facility] at 194 to request transport. declined - they have no trucks for transfer tonight. called [facility] at 194 to request transport. declined. called [facility] at 1949 to request transport. declined - do not have the resources.
--- NOTE | 2021-05-03 22:57 | PC.NURSE ---
[facility] called with ETA update of [phone].
--- NOTE | 2021-05-03 23:02 | PC.NURSE ---
[facility] called with ETA update. ETA 2345-midnight.
--- NOTE | 2021-05-03 23:20 | PC.NURSE ---
Assumed care of pt, pt is alert and upright on stretcher, VSS. Discussed POC.
--- NOTE | 2021-05-04 00:10 | PC.NURSE ---
called [facility]. ETA update of [id number]
[2021-05-04 00:46] VITALS: BP 103/71; PULSE 90; RESP 21; O2SAT 97
--- NOTE | 2021-05-04 02:21 | PC.NURSE ---
called [facility] for ETA update. ETA is [phone]
[2021-05-04 02:22] VITALS: BP 127/82; PULSE 88; RESP 18; O2SAT 95
--- NOTE | 2021-05-04 02:55 | PC.NURSE ---
[facility] here
[2021-05-04 03:10] VITALS: BP 119/78; PULSE 80; RESP 15; O2SAT 98
== END 2021-05-04 03:12 | disposition short-term general hospital (02) ==
PROVIDERS: Emergency Medicine; Emergency Provider Emergency Medicine
DX: N17.9 Acute kidney failure, unspecified (principal); R10.9 Unspecified abdominal pain; K56.600 Partial intestinal obstruction, unspecified as to cause
CPT/HCPCS: 36415; 74018; 74176; 80048; 80053; 81001; 83605; 83690; 83735; 85025; 87426; 96361; 96365; 96375; 96376; 99285; A9270; C9803; J1170; J2270; J2405; J3475; J7030

== ENCOUNTER 2021-05-11 17:04 | Emergency (ER) | payer MEDICAID, SELFPAY ==
--- NOTE | ~2021-05-11 | XR_ITS ---
XR chest 2V DATE: 05/11/2021 20:50 INDICATION: Shortness of breath with exertion TECHNIQUE: 2 views COMPARISON: 04/22/2021 AP and lateral chest 09/01/2020 portable AP chest FINDINGS: Normal heart size. There is chronic elevation of the right leaf of the diaphragm. No pulmon colin infiltrate or consolidation, pleural effusion or pulmonary vascular congestion or pneumothorax. N o hilar or mediastinal enlargement. Surgical clips, right upper quadrant, consistent with cholecystectomy. IMPRESSION: Chronic elevation right leaf of diaphragm No active cardiac pulmonary disease Status post cholecystectomy Reviewed, dictated and finalized at location A.
--- NOTE | ~2021-05-11 | NM_ITS ---
NM pulmonary perfusion DATE: 05/11/2021 20:43 INDICATION: Mid chest pain. Tachycardia. TECHNIQUE: 8 standard projections were performed after intravenous injection of 4.55 millicuries 99m technetium MAA COMPARISON: 04/22/2021 AP and lateral chest FINDINGS: There is normal distribution of radiotracer throughout both lungs. IMPRESSION: No evidence of pulmonary embolism Reviewed, dictated and finalized at Location A. Reviewed, dictated and finalized at location A.
[2021-05-11 17:07] VITALS: BP 100/60; PULSE 116; RESP 23; TEMP 36.9; O2SAT 96
--- NOTE | 2021-05-11 17:29 | ED.WEAKNESS ---
HPI - Weakness General Chief complaint: Weakness Stated complaint: WEAKNESS Time Seen by Provider: 05/11/21 17:10 History of Present Illness HPI Narrative: Patient presents with generalized weakness. Reports she was recently seen here and transferred to [facility] for a small bowel obstruction. She was discharged from [facility] today. When she got home and had to go up her stairs she was very short of breath and felt like she was going to pass out. She denies any chest pain. She denies any abdominal pain nausea vomiting or difficulty with bowel movements. She feels she is recovered from her bowel obstruction. She denies any fevers. Related Data Allergies Allergy/AdvReac Type Severity Reaction Status Date / Time No Known Allergies Allergy Verified 05/03/21 04:24 Review of Systems Review of Systems: CONSTITUTIONAL: Denies fever, chills, or sweats. EYES: Denies visual changes, redness, or discharge. ENT: Denies rhinorrhea, congestion, sore throat, or otalgia. CARDIOVASCULAR: Denies chest pain, palpitations, or edema. RESPIRATORY: Denies cough GASTROINTESTINAL: Denies abdominal pain, nausea, vomiting, or diarrhea. GENITOURINARY: Denies dysuria or hematuria. SKIN: Denies rash or itching. MUSCULOSKELETAL: Denies back pain, joint pain, or myalgia. NEUROLOGIC: Denies headache, numbness, dizziness, or focal weakness. PSYCHIATRIC: Denies anxiety or depression. All systems reviewed & are unremarkable except as noted in HPI and below PMFSH Past Medical History Medical History Abnormal echocardiogram Echocardiogram in July 2020 showed evidence of a small ASD versus PFO. Cerebrovascular accident Brain MRI on 08/16/2020 showed punctate old cerebellar basal ganglia lacunar infarctions. Cervical cancer (~2011) Status post chemotherapy and radiation. Considered to be cured. Chronic anemia Chronic kidney disease Kidney stones Surgical History Surgical History History of cholecystectomy History of nephrolithotomy with removal of calculi (~07/2020) History of total cystectomy (~02/2020) For treatment of bladder fistula. History of umbilical hernia repair History of urinary diversion procedure History of urostomy Family History Family History Mother Cerebrovascular accident Father Heart disease Social History Social History Social History: Surrogate decision maker: Ventura Joy (son) or Gavin Escobar (brother). Code status: Full code. Smoking status: Never smoker Second hand tobacco smoke exposure: No Alcohol intake: never Substance use: never Substance use type: does not use Additional living arrangements comments: Lives in [place] with her son and their dog Additional occupation/education comments: Currently unemployed. Worked for 20+ years at [employer]. Gender identity (if verbalized by the patient): Female Spiritual care concerns: No Exam Narrative: GENERAL: Well-appearing, well-nourished, and in no acute distress. HEAD: Normocephalic, atraumatic. EYES: PERRLA and EOMI. ENT: Nares clear, no rhinorrhea or epistaxis. Mucous membranes moist. NECK: Supple. No masses. No JVD CHEST: Clear to auscultation. No respiratory distress. No wheezes rales or rhonchi regular tachycardia HEART: Regular rate and rhythm. No murmur heard. Normal peripheral pulses. ABDOMEN: Soft, nontender, nondistended, normal active bowel sounds. Ostomy in place EXTREMITIES: Normal range of motion. No edema. SKIN: Warm, dry, no rash. NEURO: No focal deficits. Alert and oriented x3. PSYCH: Normal mood and affect. Course Reevaluation(s) Reevaluation #1: patient reports feeling much improved, results and ploan reviewed with aptient. patient comfortable with the outpatient jazlyn
[2021-05-11] MEDS: SODIUM CHLORIDE 0.9% IV 1,000 ML 999 ML IV CONT (17:49)
[2021-05-11 17:56] LABS: Basophils Percent Auto 0.4 % (0.2-1.2); Eosinophils Absolute Auto 0.1 K/mm3 (0-0.3); Eosinophils Percent Auto 1.1 % (0-4.4); Hematocrit 31.7 % (37.0-47.0); Hemoglobin 10.2 g/dL (12.0-15.0); Immature Granulocyte Absolute 0.03 K/mm3 (0.00-0.031); Immature Granulocyte Percent A 0.3 % (0-0.5); Lymphocytes Absolute Auto 1.68 K/mm3 (0.9-3.2); Lymphocytes Percent Auto 15.6 % (18.3-44.2); Mean Corpuscular HGB Conc 32.2 g/dl (32-36); Mean Corpuscular Hemoglobin 27.6 pg (26-34); Mean Corpuscular Volume 85.9 fl (80-100); Monocytes Absolute Auto 0.7 K/mm3 (0.1-0.6); Neutrophils Absolute Auto 8.3 K/mm3 (1.3-6.7); Neutrophils Percent Auto 76.6 % (45.5-73.1); Platelet Count Result 209 k/mm3 (150-375); Red Blood Count 3.69 M/mm3 (4.2-5.4); Red Cell Distribution Width 16.2 % (11.5-14.5); White Blood Count 10.8 K/mm3 (4.5-10.0)
[2021-05-11 18:06] LABS: Alanine Aminotransferase 15 U/L (4-35); Albumin Level 2.4 g/dL (3.5-5.1); Alkaline Phosphatase 110 U/L (38-126); Anion Gap 8 mmol/L (8-16); Aspartate Amino Transferase 24 U/L (14-36); Bilirubin,Total 0.4 mg/dL (0.2-1.3); Blood Urea Nitrogen 31 mg/dL (7-17); Calcium 7.3 mg/dL (8.4-10.2); Carbon Dioxide 16 mmol/L (22-30); Chloride 109 mmol/L (98-107); Estimated CRCL calculation 25 ml/min; Estimated Glomerular Filt Rate 18; Glucose 95 mg/dL (65-110); Potassium 3.7 mmol/L (3.4-5.0); Sodium 133 mmol/L (137-145)
[2021-05-11 18:15] LABS: NT Pro B Type Natriuretic Pept 498 pg/mL (5-100)
[2021-05-11 18:18] LABS: Troponin I < 0.012 ng/mL (0.000-0.034)
[2021-05-11 19:38] LABS: Add Urine Microscopic? YES; Appearance Urine Cloudy (Clear); Bilirubin Urine Negative (Negative); Blood Urine Negative (Negative); Color Urine Amber (Yellow); Glucose Urine UA Negative (Negative); Ketones Urine Negative (Negative); Leukocyte Esterase Ur 3+ LEU/UL (Negative); Nitrate Urine Negative (Negative); Protein Urine 2+ mg/dL (Negative); Specific Grav Ur 1.012 (1.001-1.035); Urobilinogen Urine Negative mg/dL (<2.0)
[2021-05-11] MEDS: SODIUM CHLORIDE 0.9% IV 500 ML 999 ML IV CONT (19:51)
[2021-05-11 21:08] VITALS: BP 116/79; PULSE 98; RESP 16; O2SAT 100
[2021-05-11 21:38] LABS: Troponin I < 0.012 ng/mL (0.000-0.034)
[2021-05-11 22:49] VITALS: BP 115/79; PULSE 90; RESP 16; O2SAT 98
== END 2021-05-11 22:50 | disposition home or self-care (01) ==
PROVIDERS: Emergency Provider Emergency Medicine
DX: R53.1 Weakness (principal); N18.9 Chronic kidney disease, unspecified; D64.9 Anemia, unspecified; Z85.41 Personal history of malignant neoplasm of cervix uteri; Z86.73 Personal history of transient ischemic attack (TIA), and cerebral infarction without residual deficits
CPT/HCPCS: 36415; 71046; 78580; 80053; 81001; 83880; 84484; 85025; 96360; 96361; 99284; A9540; J7030; J7040

== ENCOUNTER 2021-07-02 05:28 | Emergency (ER) | payer MEDICAID, SELFPAY ==
--- NOTE | ~2021-07-02 | CT_ITS ---
EXAMINATION: CT brain wo con DATE: 07/02/2021 07:51 INDICATION: Recent stroke. TECHNIQUE: Computed tomography (CT) of the head was performed without intravenous contrast. The dose- length product was 605.33 mGy-cm. Automated exposure control and iterative reconstruction technique w ere employed. COMPARISON: MRI dated 08/16/[address] dated 08/15/2020 FINDINGS: There is an infarction of the left parietal lobe which is likely subacute/chronic. No ventr iculomegaly or midline shift. There are chronic right lacunar infarctions. There are chronic left cer ebellar infarctions. No intracranial hemorrhage or mass effect. Paranasal sinuses and mastoids are pn eumatized. There are scattered mild periventricular and subcortical white matter changes, most likely related to small vessel ischemic disease (microangiopathy). Paranasal sinuses and mastoids are pneum atized. No depressed skull fractures. IMPRESSION: 1. Subacute/chronic left parietal lobe infarction, new since prior examination. 2: Chronic right lacunar and left cerebellar infarctions. Reviewed, dictated and finalized at location A.
--- NOTE | ~2021-07-02 | XR_ITS ---
XR chest 1V portable 07/02/2021 07:20 Indication: Weakness and shortness of breath Procedure: AP portable chest Comparison: 04/21/2021 Findings: Elevated right diaphragm. Right basilar atelectasis/scarring. No focal pneumonia, edema, pl eural effusion or pneumothorax. No acute osseous abnormality. There are cholecystectomy clips. Impression: 1: Chronic right basilar atelectasis/scarring. Reviewed, dictated and finalized at location A. Impression: 1: Chronic right basilar atelectasis/scarring.
[2021-07-02 05:40] VITALS: PULSE 100
[2021-07-02 06:00] VITALS: BP 88/55; PULSE 100; RESP 22; TEMP 35.7; O2SAT 88
--- NOTE | 2021-07-02 06:03 | ED.WEAKNESS ---
HPI - Weakness General Chief complaint: Weakness <Raymond Womack MD - Last Filed: 07/02/21 06:53> Stated complaint: Weakness <Raymond Womack MD - Last Filed: 07/02/21 06:53> Time Seen by Provider: 07/02/21 06:03 <Raymond Womack MD - Last Filed: 07/02/21 06:53> Source: patient <Raymond Womack MD - Last Filed: 07/02/21 06:53> Mode of arrival: EMS <Raymond Womack MD - Last Filed: 07/02/21 06:53> Limitations: no limitations <Raymond Womack MD - Last Filed: 07/02/21 06:53> History of Present Illness HPI Narrative: 55-year-old woman with a history of CVA, chronic kidney disease, and bowel obstructions brought to the emergency department by EMS for weakness. She has been immobile in her house for 5 days. She states that since 5 days ago she has had weakness mainly in her right leg but also in her right arm. She also complains of overall weakness that has been present since the surgery she had in April at [facility]. She denies fever, dysuria, cough or cold symptoms, shortness of breath, vomiting and chest pain. Family members have been checking on her daily and have been trying to persuade her to go to the hospital but she has been refusing. They estimate that she last walked or transferred last weekend. She was dependant on a walker prior to this. <Raymond Womack MD - Last Filed: 07/02/21 06:53> MD Complaint: generalized weakness, focal weakness and difficulty walking <Raymond Womack MD - Last Filed: 07/02/21 06:53> Onset (ago): day(s) (>5) <Raymond Womack MD - Last Filed: 07/02/21 06:53> Duration: constant <Raymond Womack MD - Last Filed: 07/02/21 06:53> Location: generalized, RUE and RLE <Raymond Womack MD - Last Filed: 07/02/21 06:53> Migration: none <Raymond Womack MD - Last Filed: 07/02/21 06:53> Relieving factors: none <Raymond Womack MD - Last Filed: 07/02/21 06:53> Exacerbating factors: none <Raymond Womack MD - Last Filed: 07/02/21 06:53> Context: recent surgery <Raymond Womack MD - Last Filed: 07/02/21 06:53> Associated symptoms: denies other symptoms <Raymond Womack MD - Last Filed: 07/02/21 06:53> Related Data Home medications: Home Medications Medication Instructions Recorded Confirmed No Home Medications 07/02/21 07/02/21 <Raymond Womack MD - Last Filed: 07/02/21 06:53> Allergies/Adverse reactions: Allergies Allergy/AdvReac Type Severity Reaction Status Date / Time No Known Allergies Allergy Verified 05/03/21 04:24 <Raymond Womack MD - Last Filed: 07/02/21 06:53> Review of Systems Review of Systems: All systems reviewed & are unremarkable except as noted in HPI and below <Raymond Womack MD - Last Filed: 07/02/21 06:53> Constitutional: Constitutional: Denies chills and Denies fever(s) <Raymond Womack MD - Last Filed: 07/02/21 06:53> Eyes: Eyes: Denies change in vision and Denies photophobia <Raymond Womack MD - Last Filed: 07/02/21 06:53> ENT: Denies nasal congestion and Denies sore throat <Raymond Womack MD - Last Filed: 07/02/21 06:53> Cardiovascular: Cardiovascular: Denies chest pain and Denies radiating jaw, neck or arm pain <Raymond Womack MD - Last Filed: 07/02/21 06:53> Respiratory: Respiratory: Denies cough, Denies dyspnea and Denies wheezing <Raymond Womack MD - Last Filed: 07/02/21 06:53> Gastrointestinal: Gastrointestinal: Denies abdominal pain, Denies diarrhea, Denies nausea and Denies vomiting <Raymond Womack MD - Last Filed: 07/02/21 06:53> Genitourinary: Genitourinary: Denies nocturia and Denies dysuria <Raymond Womack MD - Last Filed: 07/02/21 06:53> Musculoskeletal: Musculoskeletal: Denies back pain, Denies arthralgias and Denies joint swelling <Raymond Womack MD - Last Filed: 07/02/21 06:53> Integumentary/Breasts: Skin/Breast: Denies pruritus
--- NOTE | 2021-07-02 06:04 | ECG_ITS ---
Measurements Intervals Golden Rate: 101 P: 70 TX: 144 QRS: 69 QRSD: 74 T: 35 QT: 338 QTc: 440 Interpretive Statements SINUS TACHYCARDIA LOW QRS VOLTAGE - PRECORDIAL LEADS BORDERLINE ST-T WAVE ABNORMALITY- ANTEROLAT/INF LEADS BASELINE ARTIFACT- I, II, III, AVR, AVL, AVF, V1-V6 BORDERLINE ECG Electronically Signed On 07-04-2021 7:43:04 CDT by Oli Crooks D.O.
[2021-07-02] MEDS: SODIUM CHLORIDE 0.9% IV 1,000 ML 999 ML IV CONT (06:20)
--- NOTE | 2021-07-02 06:33 | PC.NURSE ---
Upon arrival and p assessment, pt cleaned of stool/diarrhea that she has been laying in for past 5 days per pt report. Pt unable to move self and noted to have breakdown sores on her coccyx and buttocks (bilat).
[2021-07-02 07:00] LABS: Base Excess ABG -21.8 mmol/L (0-2); Carboxyhemoglobin 0.3 % (0-1.5); HCO3 ABG 5.3 mmol/L (23-29); Methemoglobin ABG 0.4 % (0-1.5); Oxygen Content ABG 17.5 %vol (16.0-22.0); Oxygen Saturation ABG 98.6 % (95-97); Oxyhemoglobin 97.9 % (94-100); PO2 ABG 229.3 mmHg (80-90); Reduced Hemoglobin 1.4 % (0-1.5); Total Hemoglobin 12.3 g/dL (12.0-18.0); pH ABG 7.13 (7.35-7.45)
[2021-07-02 07:04] LABS: Site Drawn RIGHT BRACHIAL
[2021-07-02 07:05] LABS: Device NON-REBREATHER MASK
--- NOTE | 2021-07-02 07:10 | PC.NURSE ---
Report to NATHANIEL Claudio
[2021-07-02 07:11] LABS: INR 1.1; Partial Thromboplastin Time 24.3 SEC (23.90-30.70); Prothrombin Time 11.7 Seconds (9.50-12.10)
[2021-07-02 07:15] LABS: Basophils Absolute Auto 0.02 K/mm3 (0.00-0.10); Basophils Percent Auto 0.2 % (0.0-1.0); Hematocrit 36.9 % (35.0-49.0); Hemoglobin 12.4 g/dL (12.0-15.0); Immature Granulocyte Absolute 0.03 K/mm3 (0.00-0.00); Immature Granulocyte Percent A 0.3 % (0.0-0.0); Lymphocytes Absolute Auto 1.06 K/mm3 (1.10-4.50); Lymphocytes Percent Auto 10.7 % (18.0-42.0); Mean Corpuscular HGB Conc 33.6 g/dL (32.0-36.0); Mean Corpuscular Volume 89.1 fL (78.0-102.0); Mean Platelet Volume 10.7 fl (9.2-11.8); Monocytes Absolute Auto 0.28 K/mm3 (0.10-0.90); Monocytes Percent Auto 2.8 % (2.0-11.0); Neutrophils Absolute Auto 8.6 K/mm3 (1.7-7.2); Nucleated Red Blood Cells Absolute Auto 0.02 K/mm3 (0.00-0.00); Nucleated Red Blood Cells Perc 0.2 % (0-0.0); Platelet Count Result 313 K/mm3 (150-420); Red Blood Count 4.14 M/mm3 (4.20-5.40)
[2021-07-02 07:18] LABS: Alanine Aminotransferase 314 U/L (14-59); Albumin Level 2.3 g/dL (3.4-5.0); Alkaline Phosphatase 517 U/L (46-116); Anion Gap 21 mmol/L (8-16); Aspartate Amino Transferase 432 U/L (15-37); Bilirubin,Total 0.8 mg/dL (0.00-1.00); Blood Urea Nitrogen 101 mg/dL (7-18); Calcium 8.9 mg/dL (8.5-10.1); Carbon Dioxide 10 mmol/L (21-32); Chloride 119 mmol/L (98-108); Estimated CRCL calculation 17 ml/min; Estimated Glomerular Filt Rate 8; Glucose 106 mg/dL (70-99); Osmolality Calculated 341 mOsm/kg (285-295); Potassium 4.4 mmol/L (3.5-5.1); Sodium 150 mmol/L (136-145); Total Protein 8.1 g/dL (6.4-8.2); Troponin I 43.5 ng/L (0.00-60.4)
[2021-07-02 07:20] LABS: Lactic Acid Reflex 1.3 mmol/L (0.4-2.0)
[2021-07-02 07:21] LABS: Creatine Kinase 49 U/L (26-192); Magnesium 1.5 mg/dL (1.8-2.4)
[2021-07-02] MEDS: SODIUM CHLORIDE 0.9% IV 1,000 ML 150 ML (07:41)
--- NOTE | 2021-07-02 08:11 | PC.NURSE ---
called placed to [facility] spoke with Marleny at 8:08 she stated no beds no wait list at this time
--- NOTE | 2021-07-02 08:13 | PC.NURSE ---
called placed to [facility] at 8:10 spoke with Nhan he stated there was no neuro regional operations director this weekend
[2021-07-02] MEDS: DEXTROSE 5%/0.45% SOD CHL 500 ML 999 ML IV CONT (08:18)
[2021-07-02] MEDS: MAGNESIUM OXIDE 400 MG TABLET PO (08:19)
--- NOTE | 2021-07-02 08:24 | PC.NURSE ---
called placed to [facility] [place] spoke with Flaca at 8:16 no beds or wait list available at this time
--- NOTE | 2021-07-02 08:26 | PC.NURSE ---
Dr Torres spoke with Dr Melchor at [facility] at 08:20 Dr Melchor with getting in contact with neuro from [facility] and will be calling us back
--- NOTE | 2021-07-02 08:51 | PC.NURSE ---
Dr Moscoso with [facility] called back to talk to Dr Torres for report
[2021-07-02] MEDS: SODIUM BICARBONATE 8.4% 50 MEQ/50 ML SYRINGE IV PUSH (09:50)
[2021-07-02 09:59] LABS: SARS-CoV-2 Ag Negative (Negative)
[2021-07-02] MEDS: DEXTROSE 5%/0.45% SOD CHL 1,000 ML 150 ML IV CONT (10:00)
--- NOTE | 2021-07-02 10:10 | PC.NURSE ---
urostomy application changed and urine sent to lab
[2021-07-02 10:25] LABS: Appearance Urine Cloudy (Clear); Color Urine Brown (Yellow)
[2021-07-02 10:26] LABS: Glucose Urine UA Negative (Negative); Protein Urine 4+ (Negative)
[2021-07-02 10:27] LABS: Blood Urine Negative (Negative); Ketones Urine Negative (Negative); Nitrate Urine Positive (Negative)
[2021-07-02 10:28] LABS: Add Urine Microscopic? YES; Bilirubin Urine 3+ (Negative); Leukocyte Esterase Ur 3+ LEU/UL (Negative); Urobilinogen Urine Normal mg/dL (0.2-1.0)
[2021-07-02 10:29] LABS: Bacteria Urine 4+ /hpf; RBC Urine 0-2 /hpf (0-2); Squamous Epithelial Cell Urine Rare /hpf (Few); WBC Urine 31-50 /hpf (0-3)
--- NOTE | 2021-07-02 10:29 | PC.NURSE ---
[facility] called for transfer to [facility] transfer truck available
--- NOTE | 2021-07-02 10:30 | PC.NURSE ---
JORGE LUISAS called for transfer @ 10:30
[2021-07-02 10:40] VITALS: BP 124/57; PULSE 91; RESP 19; TEMP 36.6; O2SAT 100
== END 2021-07-02 10:59 | disposition short-term general hospital (02) ==
PROVIDERS: Emergency Medicine; Emergency Provider Emergency Medicine
DX: N17.9 Acute kidney failure, unspecified (principal); A41.9 Sepsis, unspecified organism; L89.309 Pressure ulcer of unspecified buttock, unspecified stage; N39.0 Urinary tract infection, site not specified; I63.9 Cerebral infarction, unspecified; Z20.822 Contact with and (suspected) exposure to COVID-19
CPT/HCPCS: 36415; 36600; 70450; 71045; 80053; 81001; 82375; 82550; 82805; 83050; 83605; 83735; 84484; 85025; 85610; 85730; 87040; 87086; 87088; 87426; 93005; 96361; 96365; 96375; 99285; A9270; C9803; J0696; J7030